=== PATIENT | female | born 1975 | race Caucasian/White ===

== ENCOUNTER 2018-08-23 23:45 | Inpatient (IN) | payer SELFPAY ==
[~2018-08-23] VITALS: Ht 175.3 cm; Wt 64.0 kg
[2018-08-24] VITALS (7 sets, daily range): BP systolic 85–104; BP diastolic 54–67
[2018-08-24] MEDS ORDERED: IV NORMAL SALINE 1,000ML 1,000 ML IV ONE (00:15)
[2018-08-24 00:31] LABS: BASO % 0 % (0-3); EOS # 0.1 x10^3/uL (0.0-0.7); EOS % 1 % (0-3); HEMATOCRIT 42.4 % (36.0-47.0); HEMOGLOBIN 14.2 g/dL (12.0-15.5); LYMPH # 1.4 x10^3/uL (1.0-4.8); LYMPH % 15 % (24-48); MEAN CORPUSCULAR HEMOGLOBIN 29 pg (25-35); MEAN CORPUSCULAR HGB CONC 33 g/dL (31-37); MEAN CORPUSCULAR VOLUME 87 fL (79-100); MONO # 0.6 x10^3/uL (0.0-1.1); MONO % 6 % (0-9); NEUT # 7.1 x10^3uL (1.8-7.7); NEUT % 77 % (31-73); PLATELET COUNT 213 x10^3/uL (140-400); RED BLOOD COUNT 4.85 x10^6/uL (3.50-5.40); RED CELL DISTRIBUTION WIDTH 13.8 % (11.5-14.5); WHITE BLOOD COUNT 9.2 x10^3/uL (4.0-11.0)
[2018-08-24 00:36] LABS: AMPHETAMINE/METHAMPHETAMINE NEG (NEG); BARBITURATES NEG (NEG); BENZODIAZEPINES NEG (NEG); CANNABINOIDS NEG (NEG); COCAINE NEG (NEG); METHADONE NEG (NEG); OPIATES NEG (NEG); PHENCYCLIDINE NEG (NEG)
[2018-08-24 00:40] LABS: ACETAMIN < 2.0 mcg/mL (10-30); ETHANOL < 10 mg/dL (0-10)
[2018-08-24 00:41] LABS: ALBUMIN 3.9 g/dL (3.4-5.0); ALBUMIN/GLOBULIN RATIO 1.1 (1.0-1.7); CALCIUM 8.9 mg/dL (8.5-10.1); CREATININE 0.7 mg/dL (0.6-1.0); GFR 92.2; POTASSIUM 3.5 mmol/L (3.5-5.1); TOTAL BILIRUBIN 0.3 mg/dL (0.2-1.0); TOTAL PROTEIN 7.3 g/dL (6.4-8.2)
[2018-08-24] MEDS ORDERED: ONDANSETRON PF 4 MG/2 ML VIAL. IV PRN ×2 (01:45→03:00)
[2018-08-24] MEDS ORDERED: IV NORMAL SALINE 1,000ML 1,000 ML IV SCH ×2 (01:45→02:59)
[2018-08-24] MEDS ORDERED: OMEP40CA5 PO (03:57)
[2018-08-24] MEDS ORDERED: CLON1TAB11 PO (03:57)
[2018-08-24] MEDS ORDERED: DILT120T PO (03:57)
--- NOTE | 2018-08-24 06:36 | ED.ADGEN ---
Past History Past Medical History: Anxiety, Arrhythmia, Cancer, Diverticulitis Past Surgical History: Cholecystectomy, Colectomy Alcohol Use: None Drug Use: None Adult General Chief Complaint Chief Complaint Drug Overdose, suicide attempt HPI HPI Patient is a 43-year-old female with history of palpitations, anxiety and depression who presents with intentional drug overdose after ingestion unknown quantity of Cardizem and Klonopin prior to ED arrival. GCS 15 on EMS arrival. Vital signs able during transport. On ED arrival, the patient is limited but alerts to tactile and verbal stimulation. Denies any coingestants, drugs, alcohol. Reports prior suicide attempts. Patient contacted family member after ingesting pills.[] Review of Systems Review of Systems ROS limited due to presentation All other systems were reviewed and found to be within normal limits, except as documented in this note. Current Medications Current Medications Current Medications Medications (Trade) Dose Ordered Sig/Derek Start Time Stop Time Status Last Admin Dose Admin Ondansetron HCl (Zofran) 4 mg PRN Q4HRS PRN 08/24/18 03:00 08/24/18 03:26 DC Sodium Chloride 1,000 ml @ 0 mls/hr Q0M 08/24/18 02:59 08/24/18 03:26 DC Allergies Allergies Allergies Coded Allergies Type Severity Reaction Last Updated Verified No Known Drug Allergies 08/24/18 No Physical Exam Physical Exam Constitutional: Well developed, well nourished. [] HENT: Normocephalic, atraumatic, bilateral external ears normal, oropharynx moist, no oral exudates, nose normal. [] Eyes: PERRLA, EOMI, conjunctiva normal, no discharge. [] Neck: Normal range of motion, no tenderness. [] Cardiovascular:Heart rate regular rhythm. [] Lungs & Thorax: Bilateral breath sounds clear to auscultation. [] Abdomen: Bowel sounds normal, soft, no tenderness. [] Skin: Warm, dry, no erythema, no rash. [] Back: No tenderness. [] Extremities: No tenderness. [] Neurologic: obstuneded, alerts to tactile and verbal stimulation normal motor function, normal sensory function, no focal deficits noted. [] Psychologic: Affect normal, judgement normal, mood normal. [] Current Patient Data Vital Signs Vital Signs Date Time Temp Pulse Resp B/P (MAP) Pulse Ox O2 Delivery O2 Flow Rate FiO2 08/24/18 06:29 69 18 87/56 (66) 96 Room Air 08/24/18 03:12 97.7 EKG EKG EKG: reviewed[] Radiology/Procedures Radiology/Procedures [] Course & Med Decision Making Course & Med Decision Making Pertinent Labs and Imaging studies reviewed. (See chart for details) [Patient monitored closely in the ED with improved mental status, patient alert and oriented with clear speech. Blood pressure stable. IV fluids given. Will admit to hospital service for medical clearance and anticipated psychiatric evaluation in a.m.] Final Impression Final Impression 1. Intentional drug overdose 2. Suicidal ideation[] Dragon Disclaimer Dragon Disclaimer This electronic medical record was generated, in whole or in part, using a voice recognition dictation system. TIM ROMERO DO Aug 24, 2018 06:36
--- NOTE | 2018-08-24 11:03 | HP ---
ADMIT DATE: 08/24/2018 HISTORY OF PRESENT ILLNESS: The patient is a 43-year-old female patient, who was brought to the Emergency Room with intentional drug overdose after ingesting an unknown quantity of Cardizem and Klonopin prior to the Emergency Department arrival. However, on questioning, the patient herself said that her sister called her and her speech was slurred and apparently she said that she took her Klonopin and her Cardizem that she takes normally and was sleepy and slurring of speech and her sister called the police and she was given a choice either to go to the senior care or come to the hospital and she decided to come to the Emergency Room. On arrival, the patient is limited, but alert to tactile and verbal stimulation. She denied any co-ingestion to drugs or alcohol. She said that she has had attempted suicide about 20 years ago. According to the Emergency Room physician, the patient contacted her family members after ingesting her pills. She was evaluated in the Emergency Room and her toxicology screen was essentially negative. Her lab work was otherwise unremarkable. PAST MEDICAL HISTORY: Significant for hypertension, gastroparesis, anxiety, idiopathic pancreatitis, polycystic ovary syndrome, and stage 1 cervical cancer. PAST SURGICAL HISTORY: Significant for cholecystectomy, exploratory laparotomy, and cervical biopsy. ALLERGIES: She has no known drug allergies. MEDICATIONS: She is currently on diltiazem 120 mg once a day, clonazepam 1 mg 3 times a day, and Omeprazole 40 mg p.o. daily. FAMILY HISTORY: She has one brother and one sister biological and one adopted sister, they are all healthy. Her both parents are healthy. SOCIAL HISTORY: She is . She has a daughter and a son. She has smoked less than half a pack a day. Does not drink alcohol or recreational drugs. 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 REVIEW OF SYSTEMS: As per history of present illness. PHYSICAL EXAMINATION: GENERAL: When I examined her this morning, she was resting slightly propped up in bed, in no apparent respiratory distress. She was somewhat pale, but no jaundice, No jugular venous distension. No lower limb edema. VITAL SIGNS: Her heart rate was 70, blood pressure was 100/61, temperature 98.2, respiratory rate was 16, and oxygen saturation was 98% on room air. HEAD, EYES, EARS, NOSE, AND THROAT: Showed normocephalic, atraumatic. NECK: Supple. HEART: Showed normal first and second sounds. No gallop, rub, or murmur. CHEST: Clear to auscultation. No crepitation or rhonchi. ABDOMEN: Scaphoid, soft, nontender. NEUROLOGIC: She is awake, alert, responding appropriately. All her cranial nerves intact. She moves extremities without difficulty. She ambulates without assistance or assistive devices. LABORATORY DATA: Her white cell count was 9200, hemoglobin 14.2, hematocrit 42, MCV 87, and platelet count 213,000 with normal manual differential. Her chemistry showed a serum sodium 141, potassium 3.5, chloride 103, bicarbonate 23, anion gap of 15, BUN 9, creatinine was 0.7. Estimated GFR was 92 mL per minute. Her glucose was 96, calcium was 8.9. Total bilirubin, AST, ALT, alkaline phosphatase were normal. Total protein was 7.3, albumin was 3.9. Her toxicology screen was negative and her test was negative. IMPRESSION AND PLAN: In summary, this is a 43-year-old female patient who was admitted according to ER physician with intentional drug overdose after ingesting unknown quantity of Cardizem and Klonopin, although the patient contradicted that and denied any intention to overdose. The plan is to, I have already consulted the psychiatrist to evaluate to see whether the patient needs any inpatient psychiatric treatment. VIOLET QUIÑONES MD DR: MITESH/bee JOB#: [id number] / [id number]
== END 2018-08-24 11:08 | disposition left against medical advice (07) | DRG 918 ==
LOC: ER 23:45 → ICU 08-24 02:58
PROVIDERS: ADMIT Internal Medicine; ATTEND Internal Medicine
DX: T42.4X2A Poisoning by benzodiazepines, intentional self-harm, initial encounter (principal); T46.1X2A Poisoning by calcium-channel blockers, intentional self-harm, initial encounter; F32.9 Major depressive disorder, single episode, unspecified; F41.9 Anxiety disorder, unspecified; I10 Essential (primary) hypertension; Z85.41 Personal history of malignant neoplasm of cervix uteri; Z91.5 Personal history of self-harm; Z90.49 Acquired absence of other specified parts of digestive tract; Y92.89 Other specified places as the place of occurrence of the external cause
CPT/HCPCS: 36415; 80053; 80307; 84702; 85025; 87641; G0480; G6039; 82003; J7030

== ENCOUNTER 2018-11-25 00:13 | Emergency (ER) | payer OTHER ==
[~2018-11-25] VITALS: Ht 175.3 cm; Wt 64.0 kg
[~2018-11-25 00:13] MED LIST: CLON1TAB11 PO; DILT120T PO; OMEP40CA5 PO
[2018-11-25] MEDS ORDERED: MECLIZINE 12.5 MG TABLET. PO PRN (00:30)
--- NOTE | 2018-11-25 00:38 | EKG ---
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
[2018-11-25 00:47] LABS: BASO % 1 % (0-3); EOS # 0.4 x10^3/uL (0.0-0.7); EOS % 7 % (0-3); HEMATOCRIT 35.5 % (36.0-47.0); HEMOGLOBIN 11.8 g/dL (12.0-15.5); LYMPH # 2.3 x10^3/uL (1.0-4.8); LYMPH % 43 % (24-48); MEAN CORPUSCULAR HEMOGLOBIN 29 pg (25-35); MEAN CORPUSCULAR HGB CONC 33 g/dL (31-37); MEAN CORPUSCULAR VOLUME 88 fL (79-100); MONO # 0.4 x10^3/uL (0.0-1.1); MONO % 8 % (0-9); NEUT # 2.3 x10^3uL (1.8-7.7); NEUT % 42 % (31-73); PLATELET COUNT 200 x10^3/uL (140-400); RED BLOOD COUNT 4.04 x10^6/uL (3.50-5.40); RED CELL DISTRIBUTION WIDTH 14.4 % (11.5-14.5); WHITE BLOOD COUNT 5.4 x10^3/uL (4.0-11.0)
[2018-11-25] MEDS ORDERED: IV NORMAL SALINE 1,000ML 1,000 ML IV SCH (01:00)
[2018-11-25] MEDS ORDERED: ONDANSETRON PF 4 MG/2 ML VIAL. IV ONE (01:00)
[2018-11-25 01:03] LABS: ALBUMIN 3.4 g/dL (3.4-5.0); ALBUMIN/GLOBULIN RATIO 1.2 (1.0-1.7); CALCIUM 8.5 mg/dL (8.5-10.1); CREATININE 0.6 mg/dL (0.6-1.0); GFR 110.2; MAGNESIUM 1.9 mg/dL (1.8-2.4); POTASSIUM 3.3 mmol/L (3.5-5.1); TOTAL BILIRUBIN 0.3 mg/dL (0.2-1.0); TOTAL PROTEIN 6.2 g/dL (6.4-8.2)
[2018-11-25 01:39] LABS: U PREG PATIENT NEGATIVE (NEG)
[2018-11-25] MEDS ORDERED: ONDA4TAB7 PO (01:39)
[2018-11-25] MEDS ORDERED: SCOP1PAT11 TP (01:39)
--- NOTE | 2018-11-25 01:39 | PHYS DOC ---
Past History Past Medical History: Anxiety, Arrhythmia, Cancer, Diverticulitis, Other Past Surgical History: Cholecystectomy, Colectomy, Other Alcohol Use: None Drug Use: None Adult General Chief Complaint Chief Complaint: DIZZY/LIGHT HEADED HPI HPI Patient is a 43-year-old female who presents with complaint of dizziness with nausea at the house. She states that the dizziness felt like everything was spinning. She states that she had sat down and tried to drink some juice and started to feel better but then developed some chest discomfort on the left side of her chest and into the left side of her neck and back. She describes that pain as sharp and stabbing in nature. At this point, she called EMS to be further evaluated. Currently she rates the pain in her chest at a 3 out of 10. She states that it is worsened with deep breathing. She also states that the dizziness has returned. She states that dizziness is worsened if she tries to sit up, stand up or turn her head. Review of Systems Review of Systems Constitutional: Denies fever or chills [] Respiratory: Denies cough or shortness of breath [] Cardiovascular: No additional information not addressed in HPI [] GI: Denies abdominal pain. Admits to nausea and vomiting. [] Neurologic: Denies headache, focal weakness or sensory changes. Complains of vertiginous dizziness. [] All other systems were reviewed and found to be within normal limits, except as documented in this note. Current Medications Current Medications Current Medications Medications (Trade) Dose Ordered Sig/Derek Start Time Stop Time Status Last Admin Dose Admin Ketorolac Tromethamine (Toradol 30mg Vial) 30 mg 1X ONCE 11/25/18 02:00 11/25/18 02:01 Meclizine HCl (Antivert) 25 mg PRN Q6HRS PRN 11/25/18 00:30 11/25/18 00:36 25 MG Ondansetron HCl (Zofran) 4 mg 1X ONCE 11/25/18 01:00 11/25/18 01:02 DC 11/25/18 00:36 4 MG Sodium Chloride 1,000 ml @ 1,000 mls/hr Q1H 11/25/18 01:00 11/25/18 01:59 11/25/18 00:37 1,000 MLS/HR Allergies Allergies Allergies Coded Allergies Type Severity Reaction Last Updated Verified No Known Drug Allergies 08/24/18 No Physical Exam Physical Exam Constitutional: Well developed, well nourished, no acute distress, non-toxic appearance. [] HENT: Normocephalic, atraumatic, bilateral external ears normal, oropharynx moist, no oral exudates, nose normal. [] Eyes: PERRLA, EOMI, conjunctiva normal, no discharge. [] Neck: Normal range of motion, no tenderness, supple, no stridor. [] Cardiovascular:Heart rate regular rhythm, no murmur [] Lungs & Thorax: Bilateral breath sounds clear to auscultation [] Abdomen: Bowel sounds normal, soft, no tenderness, no masses, no pulsatile masses. [] Skin: Warm, dry, no erythema, no rash. [] Back: No tenderness, no CVA tenderness. [] Extremities: No tenderness, no cyanosis, no clubbing, ROM intact, no edema. [] Neurologic: Alert and oriented X 3, normal motor function, normal sensory function, no focal deficits noted. [] Psychologic: Affect normal, judgement normal, mood normal. [] Current Patient Data Vital Signs Vital Signs Date Time Temp Pulse Resp B/P (MAP) Pulse Ox O2 Delivery O2 Flow Rate FiO2 11/25/18 00:13 97.7 83 18 99 Room Air Lab Results Laboratory Tests Test 11/25/18 00:15 White Blood Count 5.4 x10^3/uL (4.0-11.0) Red Blood Count 4.04 x10^6/uL (3.50-5.40) Hemoglobin 11.8 g/dL (12.0-15.5) L Hematocrit 35.5 % (36.0-47.0) L Mean Corpuscular Volume 88 fL (79-100) Mean Corpuscular Hemoglobin 29 pg (25-35) Mean Corpuscular Hemoglobin Concent 33 g/dL (31-37) Red Cell Distribution Width 14.4 % (11.5-14.5) Platelet Count 200 x10^3/uL (140-400) Neutrophils (%) (Auto) 42 % (31-73) Lymphocytes (%) (Auto) 43 % (24-48) Monocytes (%) (Auto) 8 % (0-9) Eosinophils (%) (Auto) 7 % (0-3) H Basophils (%) (Auto) 1 % (0-3) Neutrophils # (Auto) 2.3 x10^3uL (1.8-7.7) Lymphocytes # (Auto) 2.3 x10^3/uL (1.0-4.8) Monocytes # (Auto) 0.4 x10^3/uL (0.0-1.1) Eosinophils # (Auto) 0.4 x10^3/uL (0.0-0.7) Basophils # (Auto) 0.0 x10^3/uL (0.0-0.2) Sodium Level 143 mmol/L (136-145) Potassium Level 3.3 mmol/L (3.5-5.1) L Chloride Level 108 mmol/L (98-107) H Carbon Dioxide Level 25 mmol/L (21-32) Anion Gap 10 (6-14) Blood Urea Nitrogen 7 mg/dL (7-20) Creatinine 0.6 mg/dL (0.6-1.0) Estimated GFR (Cockcroft-Gault) 110.2 BUN/Creatinine Ratio 12 (6-20) Glucose Level 81 mg/dL (70-99) Calcium Level 8.5 mg/dL (8.5-10.1) Magnesium Level 1.9 mg/dL (1.8-2.4) Total Bilirubin 0.3 mg/dL (0.2-1.0) Aspartate Amino Transferase (AST) 12 U/L (15-37) L Alanine Aminotransferase (ALT) 11 U/L (14-59) L Alkaline Phosphatase 67 U/L (46-116) Troponin I Quantitative < 0.017 ng/mL (0-0.055) Total Protein 6.2 g/dL (6.4-8.2) L Albumin 3.4 g/dL (3.4-5.0) Albumin/Globulin Ratio 1.2 (1.0-1.7) Lipase 140 U/L (73-393) EKG EKG EKG demonstrates normal sinus rhythm.[] Radiology/Procedures Radiology/Procedures [] Impressions: Chest x-ray demonstrates no acute process. Course & Med Decision Making Course & Med Decision Making Pertinent Labs and Imaging studies reviewed. (See chart for details) Patient's workup was completed to include cardiac workup. Findings reviewed with patient and I discussed admission into this facility for further evaluation and management. Patient was adamant that she be discharged home, stating that she would follow-up with her primary care provider in the morning. Dragon Disclaimer Dragon Disclaimer This electronic medical record was generated, in whole or in part, using a voice recognition dictation system. Departure Departure: Impression: Primary Impression: Vertigo Additional Impression: Atypical chest pain Disposition: HOME, SELF-CARE Condition: STABLE Referrals: ALISON MACHADO DO (PCP) Patient Instructions: Benign Positional Vertigo, Chest Pain (Nonspecific) Scripts Scopolamine (TRANSDERM-SCOP) 1 Each Patch.td72 1 PATCH TP Q3DAYS PRN for DIZZINESS, #4 PATCH Prov: MARIA G KEYS Jr. DO 11/25/18 Ondansetron Hcl (ZOFRAN) 4 Mg Tablet 4 MG PO Q6HRS PRN for NAUSEA, #15 TAB Prov: MARIA G KEYS Jr. DO 11/25/18 Problem Qualifiers MARIA G KEYS Jr. DO Nov 25, 2018 01:39
[2018-11-25 01:41] LABS: BARBITURATES NEG (NEG); BENZODIAZEPINES NEG (NEG); CANNABINOIDS NEG (NEG); COCAINE NEG (NEG); METHADONE NEG (NEG); OPIATES NEG (NEG); PHENCYCLIDINE NEG (NEG)
[2018-11-25 01:42] VITALS: BP 105/62
[2018-11-25 01:46] LABS: AMPHETAMINE/METHAMPHETAMINE NEG (NEG)
[2018-11-25] MEDS ORDERED: KETOROLAC 30 MG/ML VIAL. IV ONE (02:00)
--- NOTE | 2018-11-25 07:55 | RAD ---
PROCEDURE: PORTABLE CHEST 1V CLINICAL INDICATION: Chest pain COMPARISON: None FINDINGS: No pneumothorax identified. Cardiac and mediastinal contours unremarkable. No pulmonary consolidation or acute airspace disease. No acute osseous abnormalities identified. IMPRESSION: No pulmonary consolidation or acute airspace disease. Electronically signed by: Kal Sharif DO (11/25/2018 7:52 AM) [facility]
== END 2018-11-25 02:00 | disposition home or self-care (01) ==
LOC: ER 00:13
DX: R42 Dizziness and giddiness (principal); R07.89 Other chest pain; R11.2 Nausea with vomiting, unspecified; F41.9 Anxiety disorder, unspecified
CPT/HCPCS: 36415; 71045; 80053; 80307; 81025; 83690; 83735; 84484; 85025; 93005; 96361; 96374; 96375; 99284; J1885; J2405; J8597; J7030

== ENCOUNTER 2019-01-08 01:00 | Emergency (ER) | payer SELFPAY ==
[~2019-01-08] VITALS: Ht 175.3 cm; Wt 61.2 kg
[~2019-01-08 01:00] MED LIST changes: +ONDA4TAB7 PO; +SCOP1PAT11 TP
[2019-01-08 01:15] VITALS: BP 126/85
--- NOTE | 2019-01-08 01:23 | EKG ---
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
[2019-01-08] MEDS ORDERED: LIDO:MAALOX 1:1 20 ML SINGLE DOSE. PO ONE (01:30)
[2019-01-08] MEDS ORDERED: IV NORMAL SALINE 1,000ML 1,000 ML IV ONE (01:30)
--- NOTE | 2019-01-08 01:55 | RAD ---
PROCEDURE: CHEST PA LATERAL CLINICAL INDICATION: chest pain
COMPARISON: None FINDINGS: No pneumothorax identified. Cardiac and mediastinal contours unremarkable. No pulmonary consolidation or acute airspace disease. No acute osseous abnormalities identified. IMPRESSION: No pulmonary consolidation or acute airspace disease. Electronically signed by: Kal Sharif DO (01/08/2019 1:51 AM) [facility]
[2019-01-08 02:12] LABS: BASO # 0.1 x10^3/uL (0.0-0.2); BASO % 1 % (0-3); EOS # 0.3 x10^3/uL (0.0-0.7); EOS % 4 % (0-3); HEMATOCRIT 38.2 % (36.0-47.0); HEMOGLOBIN 12.9 g/dL (12.0-15.5); LYMPH # 2.5 x10^3/uL (1.0-4.8); LYMPH % 34 % (24-48); MEAN CORPUSCULAR HEMOGLOBIN 29 pg (25-35); MEAN CORPUSCULAR HGB CONC 34 g/dL (31-37); MEAN CORPUSCULAR VOLUME 87 fL (79-100); MONO # 0.5 x10^3/uL (0.0-1.1); MONO % 7 % (0-9); NEUT % 55 % (31-73); PLATELET COUNT 234 x10^3/uL (140-400); RED BLOOD COUNT 4.37 x10^6/uL (3.50-5.40); WHITE BLOOD COUNT 7.3 x10^3/uL (4.0-11.0)
[2019-01-08 02:14] LABS: ALBUMIN 3.5 g/dL (3.4-5.0); ALBUMIN/GLOBULIN RATIO 0.9 (1.0-1.7); CALCIUM 8.8 mg/dL (8.5-10.1); CREATININE 0.7 mg/dL (0.6-1.0); GFR 92.2; MAGNESIUM 1.8 mg/dL (1.8-2.4); POTASSIUM 3.1 mmol/L (3.5-5.1); TOTAL BILIRUBIN 0.2 mg/dL (0.2-1.0); TOTAL PROTEIN 7.4 g/dL (6.4-8.2)
[2019-01-08] MEDS ORDERED: ONDANSETRON PF 4 MG/2 ML VIAL. IV ONE (02:15)
--- NOTE | 2019-01-08 02:45 | PHYS DOC ---
Past History Past Medical History: Anxiety, Arrhythmia, Cancer, Diverticulitis, Ovarian Cyst, Pancreatitis, Other Past Medical History gastroparesis Past Surgical History: Cholecystectomy, Colectomy, Other Smoking: Less than 1pk/day Alcohol Use: None Drug Use: None Adult General Chief Complaint Chief Complaint: CHEST PAIN HPI HPI Patient is a 43 year old female who presents with chest pressure and feeling disoriented since 2300 this evening. She was prescribed Augmentin for possible "pneumonia" this afternoon after visiting her PCP and took it for the first time this evening. Since this is the first time she has been prescribed this medication, she is concerned that she may be experiencing an allergic reaction. Her symptoms progressively worsened to a maximum at around 0000 at which point s he felt dizzy, disoriented, palpitations, and chest pressure that radiated to her back as well as b/l arms and jaw. She states she felt anxious during this time along with some nausea and clammy palms. Chest pressure is worse with walking and laying flat as well as taking a deep breath. She states she had a negative stress test performed three years ago. LMP was 1 month ago. Denies throat swelling, hives, or pruritus at this time. Review of Systems Review of Systems Constitutional: Reports subjective fever over past few day as well as anxiety [] Eyes: Denies blurred vision or diplopia [] HENT: Denies nasal congestion, rhinorrhea or sore throat [] Respiratory: Reports cough or shortness of breath [] Cardiovascular: Reports chest pressure that radiates to back, arms and neck b/l, palpitations [] GI: Denies abdominal pain, vomiting or diarrhea ; reports nausea : Denies dysuria or hematuria [] Musculoskeletal: Reports chest pressure radiating to back, denies additional joint pain [] Integument: Denies rash, hives or pruritus [] Neurologic: Reports dizziness and mild disorientation. Denies headache, focal weakness or sensory changes [] Psychiatric: Increased stress and anxiety Complete review of systems found to be within normal limits, except as doc umented in this note. Current Medications Current Medications Current Medications Medications (Trade) Dose Ordered Sig/Derek Start Time Stop Time Status Last Admin Dose Admin Multi-Ingredient Mouthwash/Gargle (Gi Cocktail) 20 ml 1X ONCE 01/08/19 01:30 01/08/19 01:38 DC Sodium Chloride 1,000 ml @ 1,000 mls/hr 1X ONCE 01/08/19 01:30 01/08/19 02:29 01/08/19 01:49 1,000 MLS/HR Allergies Allergies Allergies Coded Allergies Type Severity Reaction Last Updated Verified nitroglycerin Allergy Unknown 11/25/18 Yes Physical Exam Physical Exam Constitutional: Well developed, well nourished, anxious appearing female. [] HENT: Normocephalic, atraumatic, tympanic membranes visualized b/l without erythema or effusion. [] Eyes: EOMI, conjunctiva normal, no discharge. [] Neck: Supple and nontender without lymphadenopathy. [] Cardiovascular: Heart rate regular rhythm, no murmur [] Lungs & Thorax: Bilateral breath sounds clear to auscultation without adventitious breath soudns [] Abdomen: Soft and nontender [] Skin: Warm, dry, no erythema, no rash. [] Extremities: Radial pulses +2/4 b/l, no cyanosis [] Neurologic: Alert and oriented, no focal deficits noted [] Psychologic: Anxious appearing, mildly constricted affect with good judgement [] Current Patient Data Vital Signs Vital Signs Date Time Temp Pulse Resp B/P (MAP) Pulse Ox O2 Delivery O2 Flow Rate FiO2 01/08/19 01:15 97.8 96 19 100 Room Air Lab Results Laboratory Tests Test 01/08/19 01:35 Prothrombin Time 10.6 SEC (9.4-11.4) Prothrombin Time INR 1.1 (0.9-1.1) PTT 26 SEC (23-33) EKG EKG @0116 Normal sinus rhythm with rate of 84. Normal axis. No Q waves. No ST elevation or depression. [] Radiology/Procedures Radiology/Procedures PROCEDURE: CHEST PA & LATERAL PROCEDURE: CHEST PA LATERAL CLINICAL INDICATION: chest pain
COMPARISON: None FINDINGS: No pneumothorax identified. Cardiac and mediastinal contours unremarkable. No pulmonary consolidation or acute airspace disease. No acute osseous abnormalities identified. IMPRESSION: No pulmonary consolidation or acute airspace disease. [] Course & Med Decision Making Course & Med Decision Making Pertinent Labs and Imaging studies reviewed. (See chart for details) Pt is a 43 year old female who presents to the ED with the sensation of disorientation, palpitations and chest pressure that radiates back, neck and b/l arms. PERC negative. HEART score of 1 suggesting low-risk. CBC and CMP unremarkable aside from mild hypokalemia. Hypokalemia addressed. Troponin negative. Chest x-ray showed no evidence of acute cardiopulmonary process. Nausea addressed with interval improvement. Patient feels well enough to discharge home. Will send home with steroid burst for respiratory symptoms as well as potassium replacement. Patient stable for discharge with outpatient follow-up with PCP. Discussed findings and plan with patient, who acknowledges understanding and agreement. [] Dragon Disclaimer Dragon Disclaimer This electronic medical record was generated, in whole or in part, using a voice recognition dictation system. Departure Departure: Impression: Primary Impression: Palpitations Additional Impressions: Anxiety Hypokalemia Nausea Disposition: HOME, SELF-CARE Condition: STABLE Referrals: ALISON MACHADO DO (PCP) RIVERA YAP MD Patient Instructions: Anxiety and Panic Attacks, [id number], Hypokalemia, Nausea, Adult, Ktrq-xd-Vine, Palpitations, [id number], Potassium Content of Foods Scripts Ondansetron (ONDANSETRON ODT) 4 Mg Tab.rapdis 1 TAB PO PRN Q6-8HRS for NAUSEA, #16 TAB Prov: FERMIN WERNER DO 01/08/19 Prednisone (PREDNISONE) 20 Mg Tablet 2 TAB PO DAILY for Bronchitis, #8 TAB Start this medication tomorrow, Saturday01/09/19 Prov: FERMIN WERNER DO 01/08/19 HEART Score for Chest Pain PTs The HEART Score for CP Pts HEART Score for Chest Pain: HEART Score for Chest Pain Response (Comments) Value History Slighlty/Non-Suspicious 0 ECG Normal 0 Age < 45 0 Risk Factors 1 or 2 Risk Factors 1 Troponin < Normal Limit 0 Total 1 Risk Factors: Risk Factors: DM, Current or recent (<one month) smoker, HTN, HLP, family history of CAD, obesity. Risk Scores: Score 0 - 3: 2.5% MACE over next 6 weeks - Discharge Home Score 4 - 6: 20.3% MACE over next 6 weeks - Admit for Clinical Observation Score 7 - 10: 72.7% MACE over next 6 weeks - Early Invasive Strategies Problem Qualifiers FERMIN WERNER DO January 08, 2019 02:45
[2019-01-08] MEDS ORDERED: ONDA4TAB12 PO (02:50)
[2019-01-08] MEDS ORDERED: PRED20TA PO (02:50)
[2019-01-08] MEDS ORDERED: POTASSIUM CHLORIDE 20 MEQ TABLET.ER. PO ONE (03:00)
[2019-01-08] MEDS ORDERED: predniSONE 20 MG TABLET PO ONE (03:00)
== END 2019-01-08 03:26 | disposition home or self-care (01) ==
LOC: ER 01:00
DX: F41.9 Anxiety disorder, unspecified (principal); E87.6 Hypokalemia; R42 Dizziness and giddiness; F17.200 Nicotine dependence, unspecified, uncomplicated; Z88.8 Allergy status to other drugs, medicaments and biological substances
CPT/HCPCS: 36415; 71046; 80053; 82553; 83690; 83735; 83880; 84484; 85025; 85610; 85730; 93005; 96361; 96374; 99285; J2405; J7512; J7030

== ENCOUNTER 2019-03-25 17:14 | Emergency (ER) | payer SELFPAY ==
[~2019-03-25 17:14] MED LIST changes: +ONDA4TAB12 PO; +PRED20TA PO
[2019-03-25] MEDS ORDERED: IV NORMAL SALINE 1,000ML 1,000 ML IV ONE (17:30)
[2019-03-25] MEDS ORDERED: IOHEXOL 300 MG/ML 75 ML VIAL. IV ONE (18:00)
[2019-03-25 18:35] LABS: BASO % 1 % (0-3); EOS # 0.3 x10^3/uL (0.0-0.7); EOS % 5 % (0-3); HEMATOCRIT 36.6 % (36.0-47.0); LYMPH # 1.5 x10^3/uL (1.0-4.8); LYMPH % 27 % (24-48); MEAN CORPUSCULAR HEMOGLOBIN 29 pg (25-35); MEAN CORPUSCULAR HGB CONC 33 g/dL (31-37); MEAN CORPUSCULAR VOLUME 88 fL (79-100); MONO # 0.5 x10^3/uL (0.0-1.1); MONO % 9 % (0-9); NEUT # 3.2 x10^3uL (1.8-7.7); NEUT % 59 % (31-73); PLATELET COUNT 229 x10^3/uL (140-400); RED BLOOD COUNT 4.14 x10^6/uL (3.50-5.40); RED CELL DISTRIBUTION WIDTH 14.1 % (11.5-14.5); WHITE BLOOD COUNT 5.5 x10^3/uL (4.0-11.0)
[2019-03-25 18:49] LABS: ALBUMIN 3.4 g/dL (3.4-5.0); ALBUMIN/GLOBULIN RATIO 1.1 (1.0-1.7); CALCIUM 9.3 mg/dL (8.5-10.1); CREATININE 0.7 mg/dL (0.6-1.0); GFR 92.2; POTASSIUM 3.2 mmol/L (3.5-5.1); TOTAL BILIRUBIN 0.3 mg/dL (0.2-1.0); TOTAL PROTEIN 6.6 g/dL (6.4-8.2)
[2019-03-25] MEDS ORDERED: FAMOTIDINE 20 MG/2 ML VIAL IVP ONE (19:00)
[2019-03-25] MEDS ORDERED: ONDANSETRON PF 4 MG/2 ML VIAL. IV ONE (19:00)
--- NOTE | 2019-03-25 19:14 | PHYS DOC ---
Past History Past Medical History: Anxiety, Arrhythmia, Cancer, Diverticulitis, Ovarian Cyst, Pancreatitis (Idiopathic), Other Additional Past Medical Histor: Chron's Disease, Gastroparesis Past Surgical History: Cholecystectomy, Colectomy, Other Smoking: Less than 1pk/day Alcohol Use: None Drug Use: None Adult General Chief Complaint Chief Complaint: BLOODY STOOL HPI HPI Patient is a 43-year-old female who presents with hematochezia. Around 1700 she had a bowel movement, and her stool was mixed with blood.She then passed multiple blood clots from her rectum. After the bowel movement, the bleeding slowly trickled off. She is having burning sensation in her lower left abdomen. She rates the pain a 7/10. The only other time she has had this much blood in her stool was when she had a GI bleed. She has not eaten much over the past few days, because she had a dental procedure. She has been nauseated all day today and is feeling very nauseous currently. She is dizzy and has a headache. She denies vomiting. Denies fever/chills. Review of Systems Review of Systems Constitutional: Denies fever or chills Eyes: Denies redness or eye pain HENT: Denies nasal congestion or sore throat Respiratory: Denies cough or shortness of breath Cardiovascular: Denies chest pain or palpitations GI: Reports abdominal pain and nausea, denies vomiting : Denies dysuria or hematuria Musculoskeletal: Denies back pain or joint pain Integument: Denies rash or skin lesions Neurologic: Denies headache, focal weakness or sensory changes Complete systems were reviewed and found to be within normal limits, except as documented in this note. Current Medications Current Medications Current Medications Medications (Trade) Dose Ordered Sig/Derek Start Time Stop Time Status Last Admin Dose Admin Dexamethasone Sodium Phosphate (Decadron) 10 mg 1X ONCE 03/25/19 19:15 03/25/19 19:16 UNV Famotidine (Pepcid Vial) 20 mg 1X ONCE 03/25/19 19:00 03/25/19 19:01 DC 03/25/19 19:06 20 MG Iohexol (Omnipaque 300 Mg/ml) 75 ml 1X ONCE 03/25/19 18:00 03/25/19 18:01 DC 03/25/19 18:21 75 ML Ondansetron HCl (Zofran) 4 mg 1X ONCE 03/25/19 19:00 03/25/19 19:01 DC 03/25/19 19:06 4 MG Sodium Chloride 1,000 ml @ 1,000 mls/hr 1X ONCE 03/25/19 17:30 03/25/19 18:29 DC 03/25/19 18:14 1,000 MLS/HR Allergies Allergies Allergies Coded Allergies Type Severity Reaction Last Updated Verified citalopram Allergy Unknown 03/25/19 Yes nitroglycerin Allergy Unknown 03/25/19 Yes Physical Exam Physical Exam Constitutional: Well developed, well nourished, no acute distress, non-toxic appearance HENT: Normocephalic, atraumatic, oropharynx moist Eyes: PERRL, conjunctiva normal, no discharge Neck: Normal range of motion, no tenderness, supple Cardiovascular: Heart rate normal, regular rhythm Lungs & Thorax: Bilateral breath sounds clear to auscultation, no wheezing Abdomen: Soft, mild tenderness to palpation in left lower quadrant. No peritoneal signs, no rebound tenderness. Belly button ring in place. Skin: Warm, dry, no erythema, no rash Back: No tenderness, no CVA tenderness Extremities: No tenderness, ROM intact, no edema Neurologic: Alert and oriented X 3, normal motor function, normal sensory function, no focal deficits noted Psychologic: Affect normal, judgement normal, mood normal Current Patient Data Vital Signs Vital Signs Date Time Temp Pulse Resp B/P (MAP) Pulse Ox O2 Delivery O2 Flow Rate FiO2 03/25/19 17:23 97.9 90 18 96 Room Air Lab Results Laboratory Tests Test 03/25/19 18:10 White Blood Count 5.5 x10^3/uL (4.0-11.0) Red Blood Count 4.14 x10^6/uL (3.50-5.40) Hemoglobin 12.0 g/dL (12.0-15.5) Hematocrit 36.6 % (36.0-47.0) Mean Corpuscular Volume 88 fL (79-100) Mean Corpuscular Hemoglobin 29 pg (25-35) Mean Corpuscular Hemoglobin Concent 33 g/dL (31-37) Red Cell Distribution Width 14.1 % (11.5-14.5) Platelet Count 229 x10^3/uL (140-400) Neutrophils (%) (Auto) 59 % (31-73) Lymphocytes (%) (Auto) 27 % (24-48) Monocytes (%) (Auto) 9 % (0-9) Eosinophils (%) (Auto) 5 % (0-3) H Basophils (%) (Auto) 1 % (0-3) Neutrophils # (Auto) 3.2 x10^3uL (1.8-7.7) Lymphocytes # (Auto) 1.5 x10^3/uL (1.0-4.8) Monocytes # (Auto) 0.5 x10^3/uL (0.0-1.1) Eosinophils # (Auto) 0.3 x10^3/uL (0.0-0.7) Basophils # (Auto) 0.0 x10^3/uL (0.0-0.2) Sodium Level 142 mmol/L (136-145) Potassium Level 3.2 mmol/L (3.5-5.1) L Chloride Level 107 mmol/L (98-107) Carbon Dioxide Level 22 mmol/L (21-32) Anion Gap 13 (6-14) Blood Urea Nitrogen 10 mg/dL (7-20) Creatinine 0.7 mg/dL (0.6-1.0) Estimated GFR (Cockcroft-Gault) 92.2 BUN/Creatinine Ratio 14 (6-20) Glucose Level 107 mg/dL (70-99) H Calcium Level 9.3 mg/dL (8.5-10.1) Total Bilirubin 0.3 mg/dL (0.2-1.0) Aspartate Amino Transferase (AST) 12 U/L (15-37) L Alanine Aminotransferase (ALT) 14 U/L (14-59) Alkaline Phosphatase 56 U/L (46-116) Total Protein 6.6 g/dL (6.4-8.2) Albumin 3.4 g/dL (3.4-5.0) Albumin/Globulin Ratio 1.1 (1.0-1.7) EKG EKG [] Radiology/Procedures Radiology/Procedures PROCEDURE: CT ABD PELV W/ IV CONTRST ONLY CT SCAN OF THE ABDOMEN AND PELVIS WITH IV CONTRAST. History: Left lower quadrant pain Comparison:None. Procedure: Contiguous axial images of the abdomen and pelvis were performed after the administration of 75 cc of Omni 350 IV contrast and without oral contrast. CT Abdomen with contrast: Findings: There is mild wall thickening of the colon without surrounding inflammation. Liver: There are few small cysts and there is hypoattenuation anteriorly along the fissure, likely focal fatty infiltration Spleen: Unremarkable Pancreas: Unremarkable Adrenal Glands: Unremarkable Kidneys: Unremarkable There is no mass or lymphadenopathy. There is no free air. There is no free fluid. CT Pelvis with Contrast: Findings: There is moderate sigmoid diverticulosis without surrounding inflammation. There is a 4.5, 3.2 centers cyst in the right ovary. The appendix is not well visualized. The urinary bladder appears normal. There is no free fluid. There is no lymphadenopathy. Impression: 1. Mild wall thickening of the colon is consistent with pancolitis and could be infectious such as pseudomembranous colitis or could be inflammatory such as ulcerative colitis. There is no CT evidence of diverticulitis or ischemic colitis. 2. Ovarian cyst on the right. Recommend correlation with CA-125 and a 2-3 month follow-up ultrasound. PQRS Compliance Statement: One or more of the following individualized dose reduction techniques were utilized for this examination: 1. Automated exposure control 2. Adjustment of the mA and/or kV according to patient size 3. Use of iterative reconstruction technique Electronically signed by: Toby Mcmahon III, MD (03/25/2019 7:33 PM) [facility][] Course & Med Decision Making Course & Med Decision Making Pertinent Labs and Imaging studies reviewed. (See chart for details) Patient is a 43-year-old female with a past medical history Crohn's disease who presents with hematochezia. She has a bowel movement at 1700 that was mixed with blood and she passed several blood clots from her rectum. She reports burning in her left lower abdomen and nausea. On physical exam her abdomen is slightly tender to palpation in the left lower quadrant with no peritoneal signs. CT abdomen is indicative of pancolitis without diverticulitis. Laboratory evaluati on showed hypokalemia. Symptomatic treatment provided. IVF hydration given. Patient stable for discharge with outpatient follow-up with PCP/GI . Discussed findings and plan with patient and family, who acknowledge understanding and agreement. Dragon Disclaimer Dragon Disclaimer This electronic medical record was generated, in whole or in part, using a voice recognition dictation system. Departure Departure: Impression: Primary Impression: Pancolitis Additional Impression: Hypokalemia Disposition: HOME, SELF-CARE Condition: STABLE Referrals: ALISON MACHADO DO (PCP) Patient Instructions: Crohn's Disease, Hypokalemia-Brief, Potassium Content of Foods Scripts Prednisone (PREDNISONE) 20 Mg Tablet 2 TAB PO DAILY for Crohn's Exacerbation for 5 Days, #10 TAB Prov: FERMIN WERNER DO 03/25/19 Ondansetron (ONDANSETRON ODT) 4 Mg Tab.rapdis 1 TAB PO PRN Q6-8HRS PRN for NAUSEA, #16 TAB Prov: FERMIN WERNER DO 03/25/19 Problem Qualifiers FERMIN WERNER DO Mar 25, 2019 19:14
[2019-03-25] MEDS ORDERED: DEXAMETHASONE SOD PHOS 10 MG/ML VIAL IV ONE (19:15)
[2019-03-25 19:23] LABS: PREG TEST PT QUAL NEGATIVE (NEG)
--- NOTE | 2019-03-25 19:36 | RAD ---
CT SCAN OF THE ABDOMEN AND PELVIS WITH IV CONTRAST. History: Left lower quadrant pain Comparison:None. Procedure: Contiguous axial images of the abdomen and pelvis were performed after the administration of 75 cc of Omni 350 IV contrast and without oral contrast. CT Abdomen with contrast: Findings: There is mild wall thickening of the colon without surrounding inflammation. Liver: There are few small cysts and there is hypoattenuation anteriorly along the fissure, likely focal fatty infiltration Spleen: Unremarkable Pancreas: Unremarkable Adrenal Glands: Unremarkable Kidneys: Unremarkable There is no mass or lymphadenopathy. There is no free air. There is no free fluid. CT Pelvis with Contrast: Findings: There is moderate sigmoid diverticulosis without surrounding inflammation. There is a 4.5, 3.2 centers cyst in the right ovary. The appendix is not well visualized. The urinary bladder appears normal. There is no free fluid. There is no lymphadenopathy. Impression: 1. Mild wall thickening of the colon is consistent with pancolitis and could be infectious such as pseudomembranous colitis or could be inflammatory such as ulcerative colitis. There is no CT evidence of diverticulitis or ischemic colitis. 2. Ovarian cyst on the right. Recommend correlation with CA-125 and a 2-3 month follow-up ultrasound. PQRS Compliance Statement: One or more of the following individualized dose reduction techniques were utilized for this examination: 1. Automated exposure control 2. Adjustment of the mA and/or kV according to patient size 3. Use of iterative reconstruction technique Electronically signed by: Toby Mcmahon III, MD (03/25/2019 7:33 PM) [facility]
[2019-03-25] MEDS ORDERED: ONDA4TAB12 PO (19:56)
[2019-03-25] MEDS ORDERED: PRED20TA PO (19:56)
[2019-03-25] MEDS ORDERED: POTASSIUM CHLORIDE 20 MEQ TABLET.ER. PO ONE (20:00)
[2019-03-25 20:15] VITALS: BP 112/78
[2019-03-25] MEDS ORDERED: DEXAMETHASONE 4 MG TABLET PO ONE (20:30)
== END 2019-03-25 20:28 | disposition home or self-care (01) ==
LOC: ER 17:14
DX: K51.00 Ulcerative (chronic) pancolitis without complications (principal); E87.6 Hypokalemia; R42 Dizziness and giddiness; R51 Headache; F17.200 Nicotine dependence, unspecified, uncomplicated; H05.811 Cyst of right orbit; Z90.49 Acquired absence of other specified parts of digestive tract; Z88.8 Allergy status to other drugs, medicaments and biological substances
CPT/HCPCS: 36415; 74177; 80053; 83690; 84703; 85025; 96361; 96374; 96375; 99285; J2405; J3490; J8540; Q9967; J7030

== ENCOUNTER 2019-05-15 13:05 | Emergency (ER) | payer OTHER ==
[~2019-05-15] VITALS: Ht 177.8 cm; Wt 58.5 kg
--- NOTE | 2019-05-15 14:13 | RAD ---
Single view AP chest HISTORY: Shortness of breath. COMPARISON: 01/08/2019 FINDINGS: Cardiomediastinal silhouette within normal limits. No evidence of pneumothorax, infiltrate or pleural effusion. Bones appear intact. IMPRESSION: No evidence of consolidating infiltrate. Electronically signed by: Shaquille Fox MD (05/15/2019 2:11 PM) [facility]
[2019-05-15 14:23] LABS: BASO # 0.1 x10^3/uL (0.0-0.2); BASO % 1 % (0-3); EOS # 0.3 x10^3/uL (0.0-0.7); EOS % 4 % (0-3); HEMATOCRIT 37.2 % (36.0-47.0); HEMOGLOBIN 12.3 g/dL (12.0-15.5); LYMPH # 1.9 x10^3/uL (1.0-4.8); LYMPH % 26 % (24-48); MEAN CORPUSCULAR HEMOGLOBIN 29 pg (25-35); MEAN CORPUSCULAR HGB CONC 33 g/dL (31-37); MEAN CORPUSCULAR VOLUME 88 fL (79-100); MONO # 0.5 x10^3/uL (0.0-1.1); MONO % 7 % (0-9); NEUT # 4.6 x10^3uL (1.8-7.7); NEUT % 63 % (31-73); PLATELET COUNT 235 x10^3/uL (140-400); RED BLOOD COUNT 4.23 x10^6/uL (3.50-5.40); WHITE BLOOD COUNT 7.3 x10^3/uL (4.0-11.0)
[2019-05-15 14:33] LABS: ALBUMIN 3.5 g/dL (3.4-5.0); CALCIUM 8.9 mg/dL (8.5-10.1); CREATININE 0.6 mg/dL (0.6-1.0); GFR 109.6; TOTAL PROTEIN 6.9 g/dL (6.4-8.2)
[2019-05-15 14:34] LABS: POTASSIUM 3.8 mmol/L (3.5-5.1); TOTAL BILIRUBIN 0.2 mg/dL (0.2-1.0)
--- NOTE | 2019-05-15 15:25 | PHYS DOC ---
Past History Past Medical History: Anxiety, Arrhythmia, Cancer, Diverticulitis, Ovarian Cyst, Pancreatitis, Other Additional Past Medical Histor: Chron's Disease, Gastroparesis Past Surgical History: Cholecystectomy, Colectomy, Other Smoking: Less than 1pk/day Alcohol Use: None Drug Use: None Adult General Chief Complaint Chief Complaint: CHEST PAIN-CARDIAC NATURE HPI HPI Patient is a 44-year-old female presenting with chief complaint of near- syncope. She was at work she felt her heart racing she has a history of SVT but it felt different than that she was more lightheaded and passed on its own after a few minutes but she was having chest pressure she came to the emergency room for evaluation. She says she is not used to her SVT symptoms resolving on their own so she was concerned. She takes Cardizem 120 a day extended release. No recent illnesses she does have a significant GI history Crohn's disease etc. but no new symptoms in that regard today Review of Systems Review of Systems Constitutional: Denies fever or chills [] Eyes: Denies change in visual acuity, redness, or eye pain [] HENT: Denies nasal congestion or sore throat [] Respiratory: Denies cough or shortness of breath [] Cardiovascular: Musculoskeletal: Denies back pain or joint pain [] Integument: Denies rash or skin lesions [] Neurologic: Denies headache, focal weakness or sensory changes [] All other systems were reviewed and found to be within normal limits, except as documented in this note. Allergies Allergies Allergies Coded Allergies Type Severity Reaction Last Updated Verified citalopram Allergy Unknown 03/25/19 Yes nitroglycerin Allergy Unknown 03/25/19 Yes Physical Exam Physical Exam Constitutional: Well developed, well nourished, no acute distress, non-toxic appearance. [] HENT: Normocephalic, atraumatic, bilateral external ears normal, oropharynx ana [address], no oral exudates, nose normal. [] Eyes: PERRLA, EOMI, conjunctiva normal, no discharge. [] Neck: Normal range of motion, no tenderness, supple, no stridor. [] rr no mrg lctab no crw Skin: Warm, dry, no erythema, no rash. [] Back: No tenderness, no CVA tenderness. [] Extremities: No tenderness, no cyanosis, no clubbing, ROM intact, no edema. [] Neurologic: Alert and oriented X 3, normal motor function, normal sensory function, no focal deficits noted. [] Psychologic: Affect normal, judgement normal, mood normal. [] Current Patient Data Vital Signs Vital Signs Date Time Temp Pulse Resp B/P (MAP) Pulse Ox O2 Delivery O2 Flow Rate FiO2 05/15/19 13:22 98.5 74 18 100 Room Air Lab Results Laboratory Tests Test 05/15/19 14:04 05/15/19 14:17 White Blood Count 7.3 x10^3/uL (4.0-11.0) Red Blood Count 4.23 x10^6/uL (3.50-5.40) Hemoglobin 12.3 g/dL (12.0-15.5) Hematocrit 37.2 % (36.0-47.0) Mean Corpuscular Volume 88 fL (79-100) Mean Corpuscular Hemoglobin 29 pg (25-35) Mean Corpuscular Hemoglobin Concent 33 g/dL (31-37) Red Cell Distribution Width 14.0 % (11.5-14.5) Platelet Count 235 x10^3/uL (140-400) Neutrophils (%) (Auto) 63 % (31-73) Lymphocytes (%) (Auto) 26 % (24-48) Monocytes (%) (Auto) 7 % (0-9) Eosinophils (%) (Auto) 4 % (0-3) H Basophils (%) (Auto) 1 % (0-3) Neutrophils # (Auto) 4.6 x10^3uL (1.8-7.7) Lymphocytes # (Auto) 1.9 x10^3/uL (1.0-4.8) Monocytes # (Auto) 0.5 x10^3/uL (0.0-1.1) Eosinophils # (Auto) 0.3 x10^3/uL (0.0-0.7) Basophils # (Auto) 0.1 x10^3/uL (0.0-0.2) Sodium Level 140 mmol/L (136-145) Potassium Level 3.8 mmol/L (3.5-5.1) Chloride Level 104 mmol/L (98-107) Carbon Dioxide Level 28 mmol/L (21-32) Anion Gap 8 (6-14) Blood Urea Nitrogen 4 mg/dL (7-20) L Creatinine 0.6 mg/dL (0.6-1.0) Estimated GFR (Cockcroft-Gault) 109.6 BUN/Creatinine Ratio 7 (6-20) Glucose Level 88 mg/dL (70-99) Calcium Level 8.9 mg/dL (8.5-10.1) Total Bilirubin 0.2 mg/dL (0.2-1.0) Aspartate Amino Transferase (AST) 16 U/L (15-37) Alanine Aminotransferase (ALT) 17 U/L (14-59) Alkaline Phosphatase 73 U/L (46-116) Troponin I Quantitative < 0.017 ng/mL (0-0.055) Total Protein 6.9 g/dL (6.4-8.2) Albumin 3.5 g/dL (3.4-5.0) Albumin/Globulin Ratio 1.0 (1.0-1.7) POC Urine HCG, Qualitative hcg negative (Negative) EKG EKG Normal sinus rhythm rate of 70 normal intervals[] Radiology/Procedures Radiology/Procedures [] Impressions: Cardiomediastinal silhouette within normal limits. No evidence of pneumothorax, infiltrate or pleural effusion. Bones appear intact. IMPRESSION: No evidence of consolidating infiltrate. Electronically signed by: Shaquille Fox MD (05/15/2019 2:11 PM) [facility] DICTATED AND SIGNED BY: SHAQUILLE FOX MD DATE: 05/15/19 1411 CC: LOW MOREJON MD; ALISON MACHADO DO ~ Course & Med Decision Making Course & Med Decision Making Pertinent Labs and Imaging studies reviewed. (See chart for details) []lytes look good trop neg does not sound like acs heart score is h 0 e 0 a 0 r 0 t 0 two troponins negative. pt reassured. Dragon Disclaimer Dragon Disclaimer This electronic medical record was generated, in whole or in part, using a voice recognition dictation system. Departure Departure: Impression: Primary Impression: Palpitations Disposition: 01 HOME, SELF-CARE Condition: STABLE Patient Instructions: Palpitations, [id number] LOW MOREJON MD May 15, 2019 15:25
[2019-05-15 15:40] VITALS: BP 122/72
--- NOTE | 2019-05-15 19:31 | EKG ---
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
== END 2019-05-15 15:40 | disposition home or self-care (01) ==
LOC: ER 13:09
DX: R00.2 Palpitations (principal); R55 Syncope and collapse; R07.89 Other chest pain; F17.200 Nicotine dependence, unspecified, uncomplicated; F41.9 Anxiety disorder, unspecified; K50.90 Crohn's disease, unspecified, without complications; Z88.8 Allergy status to other drugs, medicaments and biological substances
CPT/HCPCS: 36415; 71045; 80053; 81025; 84484; 85025; 93005; 99285

== ENCOUNTER 2019-08-02 19:46 | Emergency (ER) | payer SELFPAY ==
[~2019-08-02] VITALS: Ht 177.8 cm; Wt 59.6 kg
[~2019-08-02 19:46] MED LIST changes: +OMEP40CA45 PO; -OMEP40CA5 PO
--- NOTE | 2019-08-02 19:57 | PHYS DOC ---
Past History Past Medical History: Anxiety, Arrhythmia, Cancer, Diverticulitis, Ovarian Cyst, Pancreatitis, UTI, Other Additional Past Medical Histor: Chron's Disease, Gastroparesis Past Surgical History: Cholecystectomy, Colectomy, Other Smoking: Less than 1pk/day Alcohol Use: None Drug Use: None Adult General Chief Complaint Chief Complaint: MULTIPLE COMPLAINTS.. " I got lots of problems.. but I had some really fast heart rate... and felt like my heart was going to come up and out of my mouth.. I ve had PSVT before.. .. but this was really bad.. It started 45 mlinutes ago... it better now... I have been drinking more caffine... I got nauseated.. " HPI HPI Patient is a 44 year old female who presents with above hx and complaints dysrhythmia-tachycardia. Patient has had proximal supraventricular tachycardia in past. Patient has been indulging in frequent caffeine use today. Patient denies any drug use. No specific ill contacts. Has had episodes of hypokalemia in the past. No recent travel. Currently patient reports her symptoms have res olved. Review of Systems Review of Systems Constitutional: Denies fever or chills [] Eyes: Denies change in visual acuity, redness, or eye pain [] HENT: Denies nasal congestion or sore throat [] Respiratory: Denies cough or shortness of breath [] Cardiovascular: No additional information not addressed in HPI [] GI: Denies abdominal pain, nausea, vomiting, bloody stools or diarrhea [] : Denies dysuria or hematuria [] Musculoskeletal: Denies back pain or joint pain [] Integument: Denies rash or skin lesions [] Neurologic: Denies headache, focal weakness or sensory changes [] Endocrine: Denies polyuria or polydipsia [] All other systems were reviewed and found to be within normal limits, except as documented in this note. Family History Family History Noncontributory Current Medications Current Medications See nursing for home meds Allergies Allergies Allergies Coded Allergies Type Severity Reaction Last Updated Verified citalopram Allergy Unknown 03/25/19 Yes nitroglycerin Allergy Unknown 03/25/19 Yes Physical Exam Physical Exam Constitutional: Moderately acute distress, non-toxic appearance. [] HENT: Normocephalic, atraumatic, bilateral external ears normal, oropharynx moist, no oral exudates, nose normal. [] Eyes: PERRLA, EOMI, conjunctiva normal, no discharge. [] Neck: Normal range of motion, no tenderness, supple, no stridor. [] Cardiovascular: Tachycardia Heart rate regular rhythm, no murmur [] Lungs & Thorax: Bilateral breath sounds equal apex with scattered wheezes on auscultation [] Abdomen: Bowel sounds normal, soft, no tenderness, no masses, no pulsatile masses. [] Old surgery scars. Skin: Warm, dry, no erythema, no rash. [] Back: No tenderness, no CVA tenderness. [] Extremities: No tenderness, no cyanosis, no clubbing, ROM intact, no edema. [] According. Neurologic: Alert and oriented X 3, normal motor function, normal sensory function, no focal deficits noted. [] Psychologic: Affect anxious, judgement normal, mood normal. [] EKG EKG My interpretation EKG shows a sinus rhythm at 94 bpm. Some nonspecific anterior lateral changes. But no findings of acute STEMI of contralateral changes.[] My interpretation of second EKG shows sinus rhythm at 80 bpm. There have been some change in lead sticker placement. No findings acute STEMI of contralateral changes. Wall morphology is equal to prior EKG but slower rate Radiology/Procedures Radiology/Procedures [][address] [address] IMAGING REPORT Signed PATIENT: ALEKSANDR SANCHEZ ACCOUNT: [id number] : 1975 LOCATION: ER AGE: 44 SEX: F EXAM STATUS: PRE ER ORD. PHYSICIAN: LEXY BRITO MD REASON: pain, DRY HEAVES. PROCEDURE: ACUTE ABDOMEN SERIES EXAM: Abdomen acute complete HISTORY: Pain. COMPARISON: 05/15/2019 FINDINGS: A frontal view of the chest and frontal upright and supine views of abdomen are obtained. There is no infiltrate, pleural effusion or pneumothorax. The heart is normal in size. There is a small amount of gas and stool within the colon. No abnormally dilated loop of bowel seen. There are cholecystectomy clips. There is no free air. There are pelvic phleboliths. IMPRESSION: 1. No acute pulmonary finding. 2. Nonobstructive bowel gas pattern. Electronically signed by: Susan Gomez MD (08/02/2019 8:41 PM) [facility] DICTATED AND SIGNED BY: SUSAN GOMEZ MD DATE: 08/02/192040 CC: LEXY BRITO MD; ALISON MACHADO DO ~ Course & Med Decision Making Course & Med Decision Making Pertinent Labs and Imaging studies reviewed. (See chart for details) Patient declines admission at this time. Patient to reduce her caffeine use. Patient take a daily aspirin. Patient follow-up primary care. Patient return of any concerns. Patient push fruit juices. Patient review all labs and workup with primary care. Impression: 1. Dysrhythmia complaints-tachycardia 2. Urinary tract infection 3. Hypokalemia 3.1 Note there was a computer shut down during pt. work up, there may be missing information or duplication of record. [] Dragon Disclaimer Dragon Disclaimer This electronic medical record was generated, in whole or in part, using a voice recognition dictation system. Departure Departure: Disposition: 01 HOME/RESIDENCE PRIOR TO ADM Condition: STABLE Referrals: ALISON MACHADO DO (PCP) Dragon Disclaimer This chart was dictated in whole or in part using Voice Recognition software in a busy, high-work load, and often noisy Emergency Department environment. It may contain unintended and wholly unrecognized errors or omissions. Dragon Disclaimer This chart was dictated in whole or in part using Voice Recognition software in a busy, high-work load, and often noisy Emergency Department environment. It may contain unintended and wholly unrecognized errors or omissions. LEXY BRITO MD Aug 02, 2019 19:57
[2019-08-02] MEDS ORDERED: IV RINGERS SOLUTION,LACTATED 1,000 ML IV SCH (19:58)
[2019-08-02] MEDS ORDERED: FAMOTIDINE 20 MG/2 ML VIAL IVP ONE (20:00)
[2019-08-02] MEDS ORDERED: ONDANSETRON PF 4 MG/2 ML VIAL. IVP ONE (20:00)
[2019-08-02 20:30] LABS: BARBITURATES NEG (NEG); BENZODIAZEPINES NEG (NEG); CANNABINOIDS NEG (NEG); COCAINE NEG (NEG); METHADONE NEG (NEG); OPIATES NEG (NEG); PHENCYCLIDINE NEG (NEG)
[2019-08-02 20:34] LABS: BACTERIA,URINE MANY /HPF (0-FEW); BILIRUBIN,URINE NEG (NEG); CLARITY,URINE HAZY; COLOR,URINE STRAW; GLUCOSE,URINE NEG (NEG); NITRITE,URINE NEG (NEG); UROBILINOGEN,URINE 0.2 mg/dL (0.2 mg/dL)
[2019-08-02 20:35] LABS: SQUAMOUS EPITHELIAL CELL,UR OCC /LPF
[2019-08-02 20:36] LABS: BASO # 0.1 x10^3/uL (0.0-0.2); BASO % 1 % (0-3); EOS # 0.2 x10^3/uL (0.0-0.7); EOS % 3 % (0-3); HEMATOCRIT 37.8 % (36.0-47.0); HEMOGLOBIN 12.3 g/dL (12.0-15.5); LYMPH # 2.1 x10^3/uL (1.0-4.8); LYMPH % 27 % (24-48); MEAN CORPUSCULAR HEMOGLOBIN 28 pg (25-35); MEAN CORPUSCULAR HGB CONC 33 g/dL (31-37); MEAN CORPUSCULAR VOLUME 87 fL (79-100); MONO # 0.6 x10^3/uL (0.0-1.1); MONO % 8 % (0-9); NEUT # 4.7 x10^3uL (1.8-7.7); NEUT % 62 % (31-73); PLATELET COUNT 261 x10^3/uL (140-400); RED BLOOD COUNT 4.34 x10^6/uL (3.50-5.40); WHITE BLOOD COUNT 7.7 x10^3/uL (4.0-11.0)
[2019-08-02 20:37] LABS: AMPHETAMINE/METHAMPHETAMINE NEG (NEG)
--- NOTE | 2019-08-02 20:43 | RAD ---
EXAM: Abdomen acute complete HISTORY: Pain. COMPARISON: 05/15/2019 FINDINGS: A frontal view of the chest and frontal upright and supine views of abdomen are obtained. There is no infiltrate, pleural effusion or pneumothorax. The heart is normal in size. There is a small amount of gas and stool within the colon. No abnormally dilated loop of bowel seen. There are cholecystectomy clips. There is no free air. There are pelvic phleboliths. IMPRESSION: 1. No acute pulmonary finding. 2. Nonobstructive bowel gas pattern. Electronically signed by: Susan Barnes MD (08/02/2019 8:41 PM) [facility]
[2019-08-02 20:49] LABS: ALBUMIN 3.6 g/dL (3.4-5.0); CALCIUM 8.3 mg/dL (8.5-10.1); CREATININE 0.5 mg/dL (0.6-1.0); DIRECT BILIRUBIN 0.1 mg/dL (0.0-0.2); GFR 135.3; POTASSIUM 3.1 mmol/L (3.5-5.1); TOTAL BILIRUBIN 0.2 mg/dL (0.2-1.0); TOTAL PROTEIN 6.8 g/dL (6.4-8.2)
[2019-08-02] MEDS ORDERED: MAGNESIUM HYDROXIDE 2,400 MG/30 ML ORAL.SUSP. PO ONE (22:00)
[2019-08-02] MEDS ORDERED: SMZ/TMP 800/160MG TABLET. PO ONE (22:00)
[2019-08-02] MEDS ORDERED: POTASSIUM CHLORIDE 20 MEQ TABLET.ER. PO ONE (22:00)
[2019-08-02 23:25] VITALS: BP 108/70
--- NOTE | 2019-08-03 01:50 | EKG ---
[address] [address] Test Date: 2019-08-02 Test Time: 22:20:00 Pat Name: ALEKSANDR SANCHEZ Department: Room: Gender: F [employer]: : 1975 Requested By: LEXY BRITO Order Number: [id number] Reading MD: Jimi Palma Measurements Intervals [place] Rate: 80 P: 27 [place]: 138 QRS: 30 QRSD: 88 T: 28 QT: 398 QTc: 463 Interpretive Statements SINUS RHYTHM Electronically Signed On 08-03-2019 13:57:53 GRAPHIC ART TECHNICIAN by Jimi Palma
--- NOTE | 2019-08-03 01:53 | EKG ---
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
== END 2019-08-02 23:25 | disposition home or self-care (01) ==
LOC: ER 19:46
DX: R00.0 Tachycardia, unspecified (principal); N39.0 Urinary tract infection, site not specified; E87.6 Hypokalemia; F41.9 Anxiety disorder, unspecified; F17.200 Nicotine dependence, unspecified, uncomplicated; Z87.440 Personal history of urinary (tract) infections; Z88.8 Allergy status to other drugs, medicaments and biological substances
CPT/HCPCS: 36415; 74022; 80048; 80076; 80307; 81001; 81025; 82150; 82550; 83690; 84484; 85025; 85610; 85730; 87086; 93005; 96374; 96375; 99285; J2405; J3490; J7120

== ENCOUNTER 2019-12-03 19:56 | Emergency (ER) | payer OTHER ==
[~2019-12-03] VITALS: Ht 177.8 cm; Wt 63.4 kg
[2019-12-03] MEDS ORDERED: IV NORMAL SALINE 1,000ML 1,000 ML IV SCH (20:27)
[2019-12-03] MEDS ORDERED: ONDANSETRON PF 4 MG/2 ML VIAL. IVP ONE (20:30)
[2019-12-03] MEDS ORDERED: IOHEXOL 300 MG/ML 75 ML VIAL. IV ONE (20:45)
[2019-12-03 20:49] LABS: BASO % 1 % (0-3); EOS # 0.2 x10^3/uL (0.0-0.7); EOS % 2 % (0-3); HEMATOCRIT 38.4 % (36.0-47.0); HEMOGLOBIN 12.5 g/dL (12.0-15.5); LYMPH # 1.8 x10^3/uL (1.0-4.8); LYMPH % 24 % (24-48); MEAN CORPUSCULAR HEMOGLOBIN 28 pg (25-35); MEAN CORPUSCULAR HGB CONC 33 g/dL (31-37); MEAN CORPUSCULAR VOLUME 85 fL (79-100); MONO # 0.4 x10^3/uL (0.0-1.1); MONO % 6 % (0-9); NEUT # 4.9 x10^3uL (1.8-7.7); NEUT % 67 % (31-73); PLATELET COUNT 249 x10^3/uL (140-400); RED BLOOD COUNT 4.55 x10^6/uL (3.50-5.40); RED CELL DISTRIBUTION WIDTH 15.9 % (11.5-14.5); WHITE BLOOD COUNT 7.4 x10^3/uL (4.0-11.0)
[2019-12-03 21:09] LABS: CREATININE 0.6 mg/dL (0.6-1.0); GFR 109.6; POTASSIUM 3.2 mmol/L (3.5-5.1)
[2019-12-03 21:12] LABS: ALBUMIN 3.6 g/dL (3.4-5.0); ALBUMIN/GLOBULIN RATIO 1.1 (1.0-1.7); BACTERIA,URINE 0 /HPF (0-FEW); BILIRUBIN,URINE NEG (NEG); CLARITY,URINE CLEAR; COLOR,URINE STRAW; GLUCOSE,URINE NEG (NEG); NITRITE,URINE NEG (NEG); SQUAMOUS EPITHELIAL CELL,UR OCC /LPF; TOTAL BILIRUBIN 0.2 mg/dL (0.2-1.0); TOTAL PROTEIN 6.9 g/dL (6.4-8.2); UROBILINOGEN,URINE 0.2 mg/dL (0.2 mg/dL); WBC,URINE OCC /HPF (0-4)
[2019-12-03] MEDS ORDERED: MECL12.573 PO (21:42)
[2019-12-03] MEDS ORDERED: CLON1TAB PO (21:43)
[2019-12-03] MEDS ORDERED: METR500T PO (21:43)
--- NOTE | 2019-12-03 21:46 | RAD ---
Exam: CT of abdomen and pelvis with contrast INDICATION: Lower abdominal pain TECHNIQUE: Sequential axial images through the abdomen and pelvis obtained following the administration of 75 mL of Omni 300 IV contrast. Sagittal and coronal reformatted images were reconstructed from the axial data and reviewed. Comparisons: 03/25/2018 FINDINGS: Heart size is normal. No pericardial effusion. Visualized lung bases are clear. No pleural effusion. Liver, spleen, pancreas, and adrenals are unremarkable. Gallbladder is surgically absent. Kidneys demonstrate symmetric enhancement. No perinephric inflammation or hydronephrosis. No renal or ureteral calculi are identified. Bladder is distended and appears thin-walled. Uterus is nonenlarged. No abnormal adnexal mass. There is a cystic lesion at the right adnexa measuring 2.6 cm. Few scattered diverticula without evidence of acute diverticulitis. Appendix is normal. No obstruction. No free intra-abdominal air or fluid. Abdominal aorta has a normal course and caliber. Abdominal vasculature is patent. No enlarged abdominal lymph nodes are identified. No suspicious osseous lesions or acute fractures. IMPRESSION: 1. Diverticulosis at the descending and sigmoid colon without evidence of acute diverticulitis. 2. A 2.6 cm cystic lesion at the right adnexa, likely ovarian in etiology. Incompletely evaluated on CT. Exposure: One or more of the following in the visualized dose reduction techniques were utilized for this examination: 1. Automated exposure control 2. Adjustment of the MA and/or KV according to patient size 3. Use of iterative of reconstructive technique Electronically signed by: Shelly Kimble MD (12/03/2019 9:43 PM) [id number]
[2019-12-03] MEDS ORDERED: KETOROLAC 30 MG/ML VIAL. ONE (22:02)
[2019-12-03] MEDS ORDERED: KETOROLAC 30 MG/ML VIAL. IVP ONE (22:15)
[2019-12-03 22:25] VITALS: BP 110/72
[2019-12-03] MEDS ORDERED: POTASSIUM CHLORIDE 20 MEQ TABLET.ER. PO ONE (22:30)
[2019-12-03] MEDS ORDERED: ONDA4TAB12 PO (22:31)
[2019-12-03] MEDS ORDERED: HYDR-3165 PO (22:31)
--- NOTE | 2019-12-03 22:31 | PHYS DOC ---
Past History Past Medical History: Anxiety, Arrhythmia, Cancer, Diverticulitis, Ovarian Cyst, Pancreatitis, UTI, Other Additional Past Medical Histor: crohns, gastroparesis,hypopotassium;PSVT, SVT, MRSA, endometriosis Past Surgical History: Cholecystectomy, Colectomy, Other Additional Past Surgical Histo: mult bx on colon for crohns, diverticulitis, bx for endometriosis Smoking: Less than 1pk/day Alcohol Use: None Drug Use: None Adult General Chief Complaint Chief Complaint: ABDOMINAL PAIN HPI HPI Patient is a 44-year-old female who presents with complaint of lower abdominal pain and pressure the last few days. Patient just recently finished having a long period, lasting approximately 5 weeks. Patient has seen [employer] and is supposed to be getting hysterectomy but is not able to get that done until elective surgeries. Patient rates the pain as moderate at about a 7 out of 10 at this time. Patient denies any vomiting or diarrhea. She states that nothing is improving her symptoms.[] Review of Systems Review of Systems Constitutional: Denies fever or chills [] Respiratory: Denies cough or shortness of breath [] Cardiovascular: No additional information not addressed in HPI [] GI: Complains of lower abdominal pain without vomiting or diarrhea [] : Denies dysuria or hematuria [] Neurologic: Denies headache, focal weakness or sensory changes [] All other systems were reviewed and found to be within normal limits, except as documented in this note. Current Medications Current Medications Current Medications Medications (Trade) Dose Ordered Sig/Derek Start Time Stop Time Status Last Admin Dose Admin Fentanyl Citrate (Fentanyl 2ml Vial) 25 mcg PRN Q15MIN PRN 12/03/19 20:30 12/04/19 20:29 Iohexol (Omnipaque 300 Mg/ml) 75 ml 1X ONCE 12/03/19 20:45 12/03/19 20:46 DC 12/03/19 21:20 75 ML Ketorolac Tromethamine (Toradol 30mg Vial) 30 mg 1X ONCE 12/03/19 22:15 12/03/19 22:16 DC 12/03/19 22:04 30 MG Ondansetron HCl (Zofran) 4 mg 1X ONCE 12/03/19 20:30 12/03/19 20:31 DC 12/03/19 20:45 4 MG Sodium Chloride 1,000 ml @ 1,000 mls/hr Q1H 12/03/19 20:27 12/03/19 21:26 DC 12/03/19 20:46 1,000 MLS/HR Allergies Allergies Allergies Coded Allergies Type Severity Reaction Last Updated Verified citalopram Allergy Unknown 03/25/19 Yes nitroglycerin Allergy Unknown 03/25/19 Yes Physical Exam Physical Exam Constitutional: Well developed, well nourished, no acute distress, non-toxic appearance. [] HENT: Normocephalic, atraumatic, bilateral external ears normal, oropharynx moist, no oral exudates, nose normal. [] Eyes: PERRLA, EOMI, conjunctiva normal, no discharge. [] Neck: Normal range of motion, no tenderness, supple, no stridor. [] Cardiovascular:Heart rate regular rhythm, no murmur [] Lungs & Thorax: Bilateral breath sounds clear to auscultation [] Abdomen: Bowel sounds normal, soft, with lower abdominal tenderness. [] Skin: Warm, dry, no erythema, no rash. [] Extremities: No tenderness, no cyanosis, no clubbing, ROM intact. [] Neurologic: Alert and oriented X 3, no focal deficits noted. [] Current Patient Data Vital Signs Vital Signs Date Time Temp Pulse Resp B/P (MAP) Pulse Ox O2 Delivery O2 Flow Rate FiO2 12/03/19 20:00 98.5 93 18 134/88 (103) 100 Room Air Lab Results Laboratory Tests Test 12/03/19 20:15 12/03/19 20:35 White Blood Count 7.4 x10^3/uL (4.0-11.0) Red Blood Count 4.55 x10^6/uL (3.50-5.40) Hemoglobin 12.5 g/dL (12.0-15.5) Hematocrit 38.4 % (36.0-47.0) Mean Corpuscular Volume 85 fL (79-100) Mean Corpuscular Hemoglobin 28 pg (25-35) Mean Corpuscular Hemoglobin Concent 33 g/dL (31-37) Red Cell Distribution Width 15.9 % (11.5-14.5) H Platelet Count 249 x10^3/uL (140-400) Neutrophils (%) (Auto) 67 % (31-73) Lymphocytes (%) (Auto) 24 % (24-48) Monocytes (%) (Auto) 6 % (0-9) Eosinophils (%) (Auto) 2 % (0-3) Basophils (%) (Auto) 1 % (0-3) Neutrophils # (Auto) 4.9 x10^3uL (1.8-7.7) Lymphocytes # (Auto) 1.8 x10^3/uL (1.0-4.8) Monocytes # (Auto) 0.4 x10^3/uL (0.0-1.1) Eosinophils # (Auto) 0.2 x10^3/uL (0.0-0.7) Basophils # (Auto) 0.0 x10^3/uL (0.0-0.2) Urine Collection Type Void Urine Color Straw Urine Clarity Clear Urine pH 7.0 Urine Specific [place] 1.010 Urine Protein Neg (NEG-TRACE) Urine Glucose (UA) Neg mg/dL (NEG) Urine Ketones (Stick) Neg mg/dL (NEG) Urine Blood Large (NEG) Urine Nitrite Neg (NEG) Urine Bilirubin Neg (NEG) Urine Urobilinogen Dipstick 0.2 mg/dL (0.2 mg/dL) Urine Leukocyte Esterase Neg (NEG) Urine RBC 1-2 /HPF (0-2) Urine WBC Occ /HPF (0-4) Urine Squamous Epithelial Cells Occ /LPF Urine Bacteria 0 /HPF (0-FEW) Sodium Level 141 mmol/L (136-145) Potassium Level 3.2 mmol/L (3.5-5.1) L Chloride Level 106 mmol/L (98-107) Carbon Dioxide Level 25 mmol/L (21-32) Anion Gap 10 (6-14) Blood Urea Nitrogen 5 mg/dL (7-20) L Creatinine 0.6 mg/dL (0.6-1.0) Estimated GFR (Cockcroft-Gault) 109.6 BUN/Creatinine Ratio 8 (6-20) Glucose Level 85 mg/dL (70-99) Calcium Level 9.0 mg/dL (8.5-10.1) Total Bilirubin 0.2 mg/dL (0.2-1.0) Aspartate Amino Transferase (AST) 14 U/L (15-37) L Alanine Aminotransferase (ALT) 17 U/L (14-59) Alkaline Phosphatase 67 U/L (46-116) Total Protein 6.9 g/dL (6.4-8.2) Albumin 3.6 g/dL (3.4-5.0) Albumin/Globulin Ratio 1.1 (1.0-1.7) Lipase 116 U/L (73-393) POC Urine HCG, Qualitative hcg negative (Negative) EKG EKG [] Radiology/Procedures Radiology/Procedures [] Impressions: PROCEDURE: CT ABD PELV W/ IV CONTRST ONLY Exam: CT of abdomen and pelvis with contrast INDICATION: Lower abdominal pain TECHNIQUE: Sequential axial images through the abdomen and pelvis obtained following the administration of 75 mL of Omni 300 IV contrast. Sagittal and coronal reformatted images were reconstructed from the axial data and reviewed. Comparisons: 03/25/2018 FINDINGS: Heart size is normal. No pericardial effusion. Visualized lung bases are clear. No pleural effusion. Liver, spleen, pancreas, and adrenals are unremarkable. Gallbladder is surgically absent. Kidneys demonstrate symmetric enhancement. No perinephric inflammation or hydronephrosis. No renal or ureteral calculi are identified. Bladder is distended and appears thin-walled. Uterus is nonenlarged. No abnormal adnexal mass. There is a cystic lesion at the right adnexa measuring 2.6 cm. Few scattered diverticula without evidence of acute diverticulitis. Appendix is normal. No obstruction. No free intra-abdominal air or fluid. Abdominal aorta has a normal course and caliber. Abdominal vasculature is patent. No enlarged abdominal lymph nodes are identified. No suspicious osseous lesions or acute fractures. IMPRESSION: 1. Diverticulosis at the descending and sigmoid colon without evidence of acute diverticulitis. 2. A 2.6 cm cystic lesion at the right adnexa, likely ovarian in etiology. Incompletely evaluated on CT. Exposure: One or more of the following in the visualized dose reduction techniques were utilized for this examination: 1. Automated exposure control 2. Adjustment of the MA and/or KV according to patient size 3. Use of iterative of reconstructive technique Electronically signed by: Shelly Dasilva MD (12/03/2019 9:43 PM) [id number] DICTATED AND SIGNED BY: SHELLY DASILVA MD DATE: 12/03/19 214 CC: MARIA G KEYS Jr. DO; ALISON MACHADO DO ~ Course & Med Decision Making Course & Med Decision Making Pertinent Labs and Imaging studies reviewed. (See chart for details) [] Dragon Disclaimer Dragon Disclaimer This electronic medical record was generated, in whole or in part, using a voice recognition dictation system. Departure Departure: Impression: Primary Impression: Lower abdominal pain Additional Impressions: Ovarian cyst Hypokalemia Disposition: 01 HOME, SELF-CARE Condition: STABLE Referrals: ALISON MACHADO DO (PCP) Patient Instructions: Abdominal Pain, Hypokalemia, Ovarian Cyst Scripts Ondansetron (ONDANSETRON ODT) 4 Mg Tab.rapdis 1 TAB PO PRN Q6-8HRS PRN for NAUSEA, #12 TAB Prov: MARIA G KEYS Jr. DO 12/03/19 Hydrocodone Bit/Acetaminophen (NORCO 5-325 TABLET) 1 Each Tablet 1 TAB PO PRN Q6HRS PRN for PAIN, #12 TAB 0 Refills Prov: MARIA G KEYS Jr. DO 12/03/19 Problem Qualifiers Additional Impressions: Ovarian cyst Laterality: right Qualified Codes: N83.201 - Unspecified ovarian cyst, right side MARIA G KEYS Jr. DO Dec 03, 2019 22:31
== END 2019-12-03 22:45 | disposition home or self-care (01) ==
LOC: ER 19:56
DX: N83.201 Unspecified ovarian cyst, right side (principal); E87.6 Hypokalemia; F17.200 Nicotine dependence, unspecified, uncomplicated; Z87.440 Personal history of urinary (tract) infections; Z88.8 Allergy status to other drugs, medicaments and biological substances; Z90.49 Acquired absence of other specified parts of digestive tract
CPT/HCPCS: 36415; 74177; 80053; 81001; 81025; 83690; 85025; 96374; 99285; J1885; J2405; Q9967; J7030

== ENCOUNTER 2020-02-06 13:13 | Emergency (ER) | payer OTHER ==
[~2020-02-06] VITALS: Ht 175.3 cm; Wt 62.0 kg
[~2020-02-06 13:13] MED LIST changes: +CLON1TAB PO; +HYDR-3165 PO; +MECL12.573 PO; +METR500T PO
[2020-02-06] MEDS ORDERED: IOHEXOL 300 MG/ML 75 ML VIAL. IV ONE (14:00)
[2020-02-06] MEDS ORDERED: IV NORMAL SALINE 1,000ML 1,000 ML IV ONE (14:00)
[2020-02-06] MEDS ORDERED: ONDANSETRON PF 4 MG/2 ML VIAL. IVP ONE (14:00)
[2020-02-06 14:07] LABS: BASO # 0.1 x10^3/uL (0.0-0.2); BASO % 1 % (0-3); EOS # 0.6 x10^3/uL (0.0-0.7); EOS % 9 % (0-3); HEMATOCRIT 37.3 % (36.0-47.0); HEMOGLOBIN 12.5 g/dL (12.0-15.5); LYMPH # 1.9 x10^3/uL (1.0-4.8); LYMPH % 29 % (24-48); MEAN CORPUSCULAR HEMOGLOBIN 28 pg (25-35); MEAN CORPUSCULAR HGB CONC 34 g/dL (31-37); MEAN CORPUSCULAR VOLUME 84 fL (79-100); MONO # 0.4 x10^3/uL (0.0-1.1); MONO % 7 % (0-9); NEUT # 3.5 x10^3uL (1.8-7.7); NEUT % 54 % (31-73); PLATELET COUNT 271 x10^3/uL (140-400); RED BLOOD COUNT 4.41 x10^6/uL (3.50-5.40); RED CELL DISTRIBUTION WIDTH 14.9 % (11.5-14.5); WHITE BLOOD COUNT 6.5 x10^3/uL (4.0-11.0)
[2020-02-06 14:17] LABS: CALCIUM 8.7 mg/dL (8.5-10.1); CREATININE 0.6 mg/dL (0.6-1.0); GFR 109.6; POTASSIUM 3.6 mmol/L (3.5-5.1)
[2020-02-06 14:22] LABS: ALBUMIN 3.3 g/dL (3.4-5.0); ALBUMIN/GLOBULIN RATIO 0.9 (1.0-1.7); TOTAL BILIRUBIN 0.2 mg/dL (0.2-1.0)
[2020-02-06] MEDS ORDERED: MORPHINE SULFATE 2 MG/ML DISP.SYRIN. ONE (14:22)
[2020-02-06] MEDS ORDERED: MORPHINE SULFATE 2 MG/ML DISP.SYRIN. IV ONE (14:30)
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
[2020-02-06 15:34] VITALS: BP 102/68
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
[2020-02-06 16:15] LABS: CLARITY,URINE CLEAR; COLOR,URINE STRAW
[2020-02-06 16:16] LABS: BACTERIA,URINE FEW /HPF (0-FEW); BILIRUBIN,URINE NEG (NEG); GLUCOSE,URINE NEG (NEG); NITRITE,URINE NEG (NEG); RBC,URINE 0 /HPF (0-2); SQUAMOUS EPITHELIAL CELL,UR OCC /LPF; UROBILINOGEN,URINE 0.2 mg/dL (0.2 mg/dL); WBC,URINE OCC /HPF (0-4)
== END 2020-02-06 15:50 | disposition home or self-care (01) ==
LOC: ER 13:13
DX: S39.91XA Unspecified injury of abdomen, initial encounter (principal); F41.9 Anxiety disorder, unspecified; F17.200 Nicotine dependence, unspecified, uncomplicated; Z87.440 Personal history of urinary (tract) infections; Z90.49 Acquired absence of other specified parts of digestive tract; Z88.8 Allergy status to other drugs, medicaments and biological substances; W51.XXXA Accidental striking against or bumped into by another person, initial encounter; Y93.89 Activity, other specified; Y92.89 Other specified places as the place of occurrence of the external cause; Y99.8 Other external cause status; Z90.710 Acquired absence of both cervix and uterus
CPT/HCPCS: 36415; 74177; 80053; 81001; 85025; 96374; 99285; J2405; Q9967; J7030

== ENCOUNTER 2020-04-01 01:39 | Emergency (ER) | payer OTHER ==
[~2020-04-01] VITALS: Ht 175.3 cm; Wt 59.0 kg
[2020-04-01 01:39] VITALS: BP 110/91
[2020-04-01] MEDS ORDERED: LIDOCAINE 2% 20 ML VIAL. ONE (01:54)
[2020-04-01] MEDS ORDERED: DIPH,PERTUSS(ACELL),TET VAC/PF 0.5 ML SYRINGE. VAX IM ONE ×2 (01:54→02:15)
[2020-04-01] MEDS ORDERED: NEOMY/BACITR/POLYMYXIN OINT PACKET. TP ONE ×2 (01:55→02:15)
--- NOTE | 2020-04-01 02:08 | PHYS DOC ---
Past History Past Medical History: Anxiety, Arrhythmia, Cancer, Diverticulitis, Ovarian Cyst, Pancreatitis, UTI, Other Additional Past Medical Histor: crohns, gastroparesis,hypopotassium;PSVT, SVT, MRSA, endometriosis Past Surgical History: Cholecystectomy, Colectomy, Other Additional Past Surgical Histo: mult bx on colon for crohns, diverticulitis, bx for endometriosis Smoking: Less than 1pk/day Alcohol Use: None Drug Use: None General Adult EDM: Chief Complaint: LACERATION/AVULSION HPI: HPI: ".. My was drunk.. and he got me pissed off.. and... I went to wash dishes.. and I slammed my arm down.. and caught knife edge that was standing up in the sink.. .. .. I ripped open my Lt. arm.. ".. ".. It was bleeding pretty good.. ".. 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 Patient has approximately 15 cm long laceration of medial side of left forearm. The skin does flap, but does not appear to involve muscle belly, tendons or ligaments. There is a portion of the laceration skin flap that appears to be avascular.. Is intact and equal to right hand. Patient does not remember her last tetanus shot. Patient does have history of inflammatory bowel issues. Patient denies taking any immunosuppressant drugs currently. Patient denies any travel. 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 Patient normally follows with . at [facility] clinic off . [facility] [address]. . Review of Systems: Review of Systems: Constitutional: Denies fever or chills Eyes: Denies change in visual acuity HENT: Denies nasal congestion or sore throat Respiratory: Denies cough or shortness of breath Cardiovascular: Denies chest pain or edema GI: Denies abdominal pain, nausea, vomiting, bloody stools or diarrhea : Denies dysuria Musculoskeletal: Denies back pain or joint pain Integument: Denies rash Neurologic: Denies headache, focal weakness or sensory changes Endocrine: Denies polyuria or polydipsia Lymphatic: Denies swollen glands Psychiatric: Denies depression or anxiety Heart Score: Risk Factors: Risk Factors: DM, Current or recent (<one month) smoker, HTN, HLP, family history of CAD, obesity. Risk Scores: Score 0 - 3: 2.5% MACE over next 6 weeks - Discharge Home Score 4 - 6: 20.3% MACE over next 6 weeks - Admit for Clinical Observation Score 7 - 10: 72.7% MACE over next 6 weeks - Early Invasive Strategies Family History: Family History: Noncontributory to presentation Current Medications: Current Meds: Current Medications Medications (Trade) Dose Ordered Sig/Derek Start Time Stop Time Status Last Admin Dose Admin Diphtheria/ Pertussis/Tetanus Vacc (ADACEL TDap SYRINGE) 0.5 ml STK-MED ONCE 04/01/20 01:54 04/01/20 01:55 DC Lidocaine HCl 20 ml STK-MED ONCE 04/01/20 01:54 04/01/20 01:54 DC Neomycin/ Polymyxin/ Bacitracin (Triple Antibiotic Ointment) 1 pkt STK-MED ONCE 04/01/20 01:55 04/01/20 01:55 DC Allergies: Allergies: Allergies Coded Allergies Type Severity Reaction Last Updated Verified citalopram Allergy Unknown 03/25/19 Yes nitroglycerin Allergy Unknown 03/25/19 Yes Physical Exam: PE: Constitutional: Well developed, well nourished, moderate acute distress, non- toxic appearance. [] HENT: Normocephalic, atraumatic, bilateral external ears normal, oropharynx moist, no oral exudates, nose normal. [] Eyes: PERRLA, EOMI, conjunctiva normal, no discharge. [] Neck: Normal range of motion, no tenderness, supple, no stridor. [] Cardiovascular:Heart rate regular rhythm, no murmur [] Lungs & Thorax: Bilateral breath sounds clear to auscultation [] Abdomen: Bowel sounds normal, soft, no tenderness, no masses, no pulsatile masses. [] Multiple surgery scars Skin: Warm, dry, no erythema, no rash. [] Back: No tenderness, no CVA tenderness. [] Extremities: No tenderness, no cyanosis, no clubbing, ROM intact, no edema. [] Laceration left forearm as per HPI Neurologic: Alert and oriented X 3, normal motor function, normal sensory function, no focal deficits noted. [] Psychologic: Affect anxious and angry l, judgement normal, mood normal. [] EKG: EKG: [] Radiology/Procedures: Radiology/Procedures: [] Course & Med Decision Making: Course & Med Decision Making Pertinent Labs and Imaging studies reviewed. (See chart for details) Procedure note-laceration repair-the 15 cm laceration area irrigated with normal saline. Betadine applied to the edge of wound. Reirrigated with normal saline. Injected into wound with 2% lidocaine. Reirrigated laceration with normal saline in range of motion. Close laceration with 12 ananya. Dressing applied with Polysporin. Patient to keep the dressing clean and dry. If becomes soiled or wet to remove it immediately. Once initial dressing removed after 3 days ( or sooner) to apply Polysporin 4 times a day. [place] to be removed in 10 days. Patient take Tylenol or Ibuprofen for discomfort. Patient to monitor for infection. Patient return if any concerns. Warned patient that an area of the laceration appeared to be avascular and may slough. Patient also advised to keep laceration covered when working at [employer]. Patient advised she will have a significant scar from the laceration which may reduce with time. If unhappy with final scarring may have reduction of scar with plastic surgery. Impression: 1. Laceration- -15 cm Jitendra Disclaimer: Jitendra Disclaimer: This electronic medical record was generated, in whole or in part, using a voice recognition dictation system. Departure Departure: Disposition: 01 HOME/RESIDENCE PRIOR TO ADM Condition: STABLE Referrals: ALISON MACHADO DO (PCP) Justification of Admission: Justification of Admission: Justification of Admission Dx: N/A Jitendra Disclaimer This chart was dictated in whole or in part using Voice Recognition software in a busy, high-work load, and often noisy Emergency Department environment. It may contain unintended and wholly unrecognized errors or omissions. LEXY BRITO MD Apr 01, 2020 02:08
[2020-04-01] MEDS ORDERED: LIDOCAINE 2% 20 ML VIAL. IJ ONE (02:15)
== END 2020-04-01 02:13 | disposition home or self-care (01) ==
LOC: ER 01:39
DX: S51.812A Laceration without foreign body of left forearm, initial encounter (principal); F41.9 Anxiety disorder, unspecified; F17.200 Nicotine dependence, unspecified, uncomplicated; Z87.440 Personal history of urinary (tract) infections; Z88.8 Allergy status to other drugs, medicaments and biological substances; W26.0XXA Contact with knife, initial encounter; Y93.G1 Activity, food preparation and clean up; Y92.89 Other specified places as the place of occurrence of the external cause; Y99.8 Other external cause status
CPT/HCPCS: 12005; 90471; 90715; 99283; J2001

== ENCOUNTER 2020-04-06 15:20 | Emergency (ER) | payer OTHER ==
[~2020-04-06] VITALS: Ht 175.3 cm; Wt 60.1 kg
[2020-04-06 15:20] VITALS: BP 91/59
[2020-04-06] MEDS ORDERED: CEPH-264 PO (16:18)
--- NOTE | 2020-04-06 16:19 | PHYS DOC ---
Past History Past Medical History: Anxiety, Arrhythmia, Cancer, Diverticulitis, Ovarian Cyst, Pancreatitis, UTI, Other Additional Past Medical Histor: crohns, gastroparesis,hypopotassium;PSVT, SVT, MRSA, endometriosis Past Surgical History: Cholecystectomy, Colectomy, Other Additional Past Surgical Histo: mult bx on colon for crohns, diverticulitis, bx for endometriosis Smoking: Less than 1pk/day Alcohol Use: None Drug Use: None General Adult EDM: Chief Complaint: WOUND CHECK HPI: HPI: 44-year-old female presents with wound check of her left forearm. The patient had ananya placed at this facility 5 days ago. She had her arm twisted in that area by someone at work. Since that time, she has noticed 3 the ananya are not in the correct orientation. She is also had a stinging pain sensation and that is why she came in today. She has had no bleeding. The wound is still closed. She denies any other complaints at this time. Review of Systems: Review of Systems: Constitutional: Denies fever or chills Eyes: Denies change in visual acuity HENT: Denies nasal congestion or sore throat Respiratory: Denies cough or shortness of breath Cardiovascular: Denies chest pain or edema GI: Denies abdominal pain, nausea, vomiting, bloody stools or diarrhea : Denies dysuria Musculoskeletal: Denies back pain or joint pain Integument: Crane in the left forearm with erythema and warmth surrounding. Neurologic: Denies headache, focal weakness or sensory changes Endocrine: Denies polyuria or polydipsia Lymphatic: Denies swollen glands Psychiatric: Denies depression or anxiety Heart Score: Risk Factors: Risk Factors: DM, Current or recent (<one month) smoker, HTN, HLP, family history of CAD, obesity. Risk Scores: Score 0 - 3: 2.5% MACE over next 6 weeks - Discharge Home Score 4 - 6: 20.3% MACE over next 6 weeks - Admit for Clinical Observation Score 7 - 10: 72.7% MACE over next 6 weeks - Early Invasive Strategies Allergies: Allergies: Allergies Coded Allergies Type Severity Reaction Last Updated Verified citalopram Allergy Unknown 03/25/19 Yes nitroglycerin Allergy Unknown 03/25/19 Yes Physical Exam: PE: Constitutional: Well developed, well nourished, no acute distress, non-toxic appearance. [] HENT: Normocephalic, atraumatic, bilateral external ears normal, oropharynx moist, no oral exudates, nose normal. [] Eyes: PERRLA, EOMI, conjunctiva normal, no discharge. [] Neck: Normal range of motion, no tenderness, supple, no stridor. [] Cardiovascular:Heart rate regular rhythm, no murmur [] Lungs & Thorax: Bilateral breath sounds clear to auscultation [] Abdomen: Bowel sounds normal, soft, no tenderness, no masses, no pulsatile masses. [] Skin: Crane in the left forearm with some surrounding erythema and warmth. 3 ananya improperly oriented. No bleeding or wound dehiscence. [] Back: No tenderness, no CVA tenderness. [] Extremities: No tenderness, no cyanosis, no clubbing, ROM intact, no edema. [] Neurologic: Alert and oriented X 3, normal motor function, normal sensory function, no focal deficits noted. [] Psychologic: Affect normal, judgement normal, mood normal. [] Current Patient Data: Vital Signs: Vital Signs Date Time Temp Pulse Resp B/P (MAP) Pulse Ox O2 Delivery O2 Flow Rate FiO2 04/06/20 15:20 97.9 91 18 91/59 (70) 96 Room Air EKG: EKG: [] Radiology/Procedures: Radiology/Procedures: [] Course & Med Decision Making: Course & Med Decision Making Pertinent Labs and Imaging studies reviewed. (See chart for details) I was able to remove the 3 ananya that were twisted around sideways or upside down. I left the remaining ananya as it is not time to remove them yet. The area was recovered with gauze and Coban. I will give her Keflex for 7 days for infection prophylaxis. She is stable for discharge at this time. [] Dragon Disclaimer: Jitendra Disclaimer: This electronic medical record was generated, in whole or in part, using a voice recognition dictation system. Departure Departure: Impression: Primary Impression: Laceration of forearm, left Additional Impressions: Removal of ananya Cellulitis Disposition: HOME/RESIDENCE PRIOR TO ADM Condition: STABLE Referrals: ALISON MACHADO DO (PCP) Patient Instructions: Cellulitis, Onsp-zd-Eerl Scripts Cephalexin (KEFLEX) 500 Mg Capsule 1 CAP PO TID for cellulitis for 7 Days, #21 CAP 0 Refills Prov: TIM VARGSA DO 04/06/20 Justification of Admission: Justification of Admission: Justification of Admission Dx: N/A TIM VARGAS DO Apr 06, 2020 16:19
== END 2020-04-06 16:30 | disposition home or self-care (01) ==
LOC: ER 15:20
DX: S51.812D Laceration without foreign body of left forearm, subsequent encounter (principal); L03.114 Cellulitis of left upper limb; F41.9 Anxiety disorder, unspecified; F17.200 Nicotine dependence, unspecified, uncomplicated; Z87.440 Personal history of urinary (tract) infections; Z88.8 Allergy status to other drugs, medicaments and biological substances; X58.XXXD Exposure to other specified factors, subsequent encounter
CPT/HCPCS: 99283

== ENCOUNTER 2020-05-27 15:05 | Emergency (ER) | payer OTHER ==
[~2020-05-27] VITALS: Ht 177.8 cm; Wt 62.1 kg
[~2020-05-27 15:05] MED LIST changes: +CEPH-264 PO
--- NOTE | 2020-05-27 15:42 | PHYS DOC ---
Past History Past Medical History: Anxiety, Arrhythmia, Cancer, Diverticulitis, Ovarian Cyst, Pancreatitis, UTI, Other Additional Past Medical Histor: crohns, gastroparesis,hypopotassium;PSVT, SVT, MRSA, endometriosis Past Surgical History: Cholecystectomy, Colectomy, Other Additional Past Surgical Histo: mult bx on colon for crohns, diverticulitis, bx for endometriosis Smoking: Less than 1pk/day Alcohol Use: None Drug Use: None General Adult EDM: Chief Complaint: FEVER HPI: HPI: 45 yo F PMH endometriosis w/hysterectomy (02/01), chrons, diverticulitis, gastroparesis, and pancreatitis presents to the ed with concern for fever of 99 degrees at home, tmax 100.1 oral, took apap 1000mg. 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 Pt c/o dry cough, fever, body aches, mild sore throat, mild headache and loose watery diarrhea for the past 2 days. Pt is requesting a influenza test, does not want to be tested for covid because she feels like her throat is sore from being tested yesterday. On no control or hormones. Review of Systems: Review of Systems: Constitutional: Denies fever or chills Eyes: Denies change in visual acuity HENT: Denies nasal congestion or sore throat Respiratory: Denies cough or shortness of breath or hemoptysis Cardiovascular: Denies chest pain or syncope GI: Denies abdominal pain, nausea, vomiting, melena, hematochezia or diarrhea : Denies dysuria, hematuria Musculoskeletal: Denies back pain or joint pain or lower extremity edema Integument: Denies rash Neurologic: Denies headache, focal weakness or sensory changes, neck stiffness, blurry vision Endocrine: Denies polyuria or polydipsia Lymphatic: Denies swollen glands Psychiatric: Denies depression or anxiety Heart Score: Risk Factors: Risk Factors: DM, Current or recent (<one month) smoker, HTN, HLP, family history of CAD, obesity. Risk Scores: Score 0 - 3: 2.5% MACE over next 6 weeks - Discharge Home Score 4 - 6: 20.3% MACE over next 6 weeks - Admit for Clinical Observation Score 7 - 10: 72.7% MACE over next 6 weeks - Early Invasive Strategies Allergies: Allergies: Allergies Coded Allergies Type Severity Reaction Last Updated Verified citalopram Allergy Unknown 03/25/19 Yes nitroglycerin Allergy Unknown 03/25/19 Yes Physical Exam: PE: Constitutional: Well developed, well nourished, no acute distress, non-toxic appearance. [] HENT: Normocephalic, atraumatic, bilateral external ears normal, oropharynx moist, no oral exudates, nose normal. [] Eyes: EOMI, conjunctiva normal, no discharge. [] Neck: Normal range of motion, supple, Cardiovascular:Heart rate regular rhythm, no murmur [] Lungs & Thorax: speaking in full sentences, no tachypnea or respiratory distress Skin: Warm, dry, no erythema, no rash. [] Back: No tenderness, Extremities: No tenderness, no cyanosis, no clubbing, ROM intact, no edema. [] Neurologic: Alert and oriented X 3, normal motor function, normal sensory function, no focal deficits noted. [] Psychologic: Affect normal, judgement normal, mood normal. [] EKG: EKG: [] Radiology/Procedures: Radiology/Procedures: IMAGING REPORT Signed PATIENT: ALEKSANDR SANCHEZ ACCOUNT: [id number] : 1975 LOCATION: ER AGE: 45 SEX: F EXAM STATUS: REG ER ORD. PHYSICIAN: ERICA GARLAND DO REASON: fever PROCEDURE: PORTABLE CHEST 1V EXAMINATION: PORTABLE CHEST 1V CLINICAL HISTORY: Fever EXAM DATE/TIME: 05/27/2020 3:32 PM COMPARISON: 05/15/2019 FINDINGS: Lines, Tubes, and Devices: None. Cardiomediastinal Silhouette: Normal heart size. Aortic atherosclerotic calcification. Lungs and Pleura: Minimal left basilar patchy opacities, likely subsegmental atelectasis. No evidence of focal airspace consolidation or pleural effusion. Pulmonary vasculature unremarkable. Bones and Soft Tissues: No acute osseous abnormality. IMPRESSION: Minimal patchy left basilar airspace disease, likely subsegmental atelectasis. Electronically signed by: Lele Galdamez DO (05/27/2020 3:58 PM) [id number] DICTATED AND SIGNED BY: LELE GALDAMEZ DO DATE: 05/27/20 1558 CC: ERICA GARLAND DO; ALISON MACHADO DO ~ Course & Med Decision Making: Course & Med Decision Making Pertinent Labs and Imaging studies reviewed. (See chart for details) COVID-19 CRITERIA: The patient was evaluated during the global COVID-19 pandemic, and that diagnosis was suspected/considered upon their initial presentation. Their evaluation, treatment and testing was consistent with current guidelines for patients who present with complaints or symptoms that may be related to COVID-19. Concern for viral syndrome/uri in very well appearing female, requiring no oxygen. Encouraged urgent outpatient follow-up with PMD. Life-threatening processes were considered but are low suspicion at this time, given history and physical exam. Pt was educated on all prescription medications and adverse effects. All patient's questions were answered and pt was stable at time of discharge. Differential includes surgical abdomen (appendicitis, cholecystitis, diverticulitis, inflammatory bowel disease, abscess, perforation), meningitis, encephalitis, Chadwick's angina, necrotizing fasciitis, endocarditis, life- threatening rash, viral syndrome, gynecologic and urologic emergencies (endometritis, ovarian/testicular torsion, TOA, obstructive nephropathy, prosta titis), head and neck abscess, sepsis or shock, or respiratory failure. I spoken with the patient and her caregivers. I explained the patient's condition, diagnoses and treatment plan based on the information available to me at this time. I have answered the patient and her caregiver's questions and addressed any concerns. The patient and her caregivers have a good understandin g of patient's diagnosis, condition and treatment plan as can be expected at this point. Vital signs have been stable. Patient's condition is stable and appropriate for discharge from the emergency department. Patient will pursue further outpatient evaluation with primary care physician or other designated or consulting physician as outlined in the discharge instructions. The patient and/or caregivers are agreeable to this plan of care and follow-up instructions have been explained in detail. The patient and/or caregivers have received these instructions in written form and have expressed an understanding of the discharge instructions. The patient and/or caregivers are aware that any significant change of condition or worsening of symptoms should prompt immediate return to this or the closest emergency department or call to 911. Jitendra Disclaimer: Jitendar Disclaimer: This electronic medical record was generated, in whole or in part, using a voice recognition dictation system. Departure Departure: Impression: Primary Impression: URI (upper respiratory infection) Additional Impression: Suspected COVID-19 virus infection Disposition: 01 HOME/RESIDENCE PRIOR TO ADM Condition: STABLE Referrals: ALISON MACHADO DO (PCP) Patient Instructions: Fever of Unknown Origin Additional Instructions: cYou have been tested for or diagnosed with COVID-19. It is an infection caused by a new type of coronavirus. COVID-19 will cause cold-like or mild flu symptoms in most. It can cause more severe symptoms like problems breathing in some. There is no treatment for COVID-19. The body will clear the infection over time. Self-care will help to ease discomfort. Steps to Take: Self-Care Rest as needed. Healthy habits may help you feel better. Steps include: Choose healthy foods including fruits and vegetables. Drink water throughout the day. Get plenty of sleep each night. If you smoke, try to quit. It may ease breathing. Avoid alcohol. Keep Others Healthy The virus can spread to others. Droplets are released every time you sneeze or cough. The droplets can get into the mouth, nose, or eyes of people near you and lead to infection. To lower the chances of spreading COVID-19 to others: Stay at home until your doctor has said it is safe to leave. If you tested positive this will mean staying isolated until both of the following are true: At least 7 days have passed since the start of illness. You are free of fever for at least 72 hours without the use of medicine. During this time: - Avoid public areas, events, or transportation. Do not return to work or school until your doctor has said it is safe to do so. - Call ahead if you need to go to a medical center. Let them know you may have COVID-19. It will help them guide you where to go. They may also ask you to wear a facemask when you come to the office. - If you call for emergency medical services, let them know you may have COVID- 19. While at home: - Try to avoid close contact with others. Stay about 6 feet away. - If possible, spend most of your time in a separate room from others. - Use a face mask if you will be in close contact with others such as sharing a room or vehicle. - Have someone wipe down common surfaces in the home. Use household agronomy advisor every day on areas like doorknobs, counters, or sinks. - Cough or sneeze into a tissue. Throw the tissue away right after use. If a tissue is not available, cough or sneeze into your elbow. - Wash your hands often. Wash them after sneezing or coughing. Use soap and water and wash for at least 20 seconds. Alcohol based hand carbonating stone cleaner can be used if soap and water is not available. - Do not prepare food for others. Avoid sharing personal items like forks, spoons, or toothbrushes. - Avoid close contact with pets while you are sick. There is no evidence of the virus passing to pets. This is a safety step until more is known about this virus. Isolation can be frustrating. Social interaction can help. Keep in touch with friends and family through phone and tech options. You can still interact with others in your home, just keep a safe distance of about 6 feet. Follow-up: Your doctors office will check in with you to see if there are any changes in your health. You may be asked to keep track of symptoms to share with them. They will also let you know when you are clear to be in public again. Problems to Look Out For: Contact your doctor if your recovery is not going as you expect. Get emergency care if you have problems such as: - Trouble breathing - Nonstop chest pain or pressure - Changes in awareness, confusion, or problems waking - Lips or face have bluish color - Worsening of symptoms If you think you have an emergency, call for emergency medical services right away. As taken from [facility] Patient/Caregiver given discharge instructions and they have confirmed that they understand the instructions. Patient ambulatory with steady gait. Justification of Admission: Justification of Admission: Justification of Admission Dx: N/A ERICA GARLAND DO May 27, 2020 15:42
[2020-05-27 15:57] VITALS: BP 105/64
--- NOTE | 2020-05-27 16:01 | RAD ---
EXAMINATION: PORTABLE CHEST 1V CLINICAL HISTORY: Fever EXAM DATE/TIME: 05/27/2020 3:32 PM COMPARISON: 05/15/2019 FINDINGS: Lines, Tubes, and Devices: None. Cardiomediastinal Silhouette: Normal heart size. Aortic atherosclerotic calcification. Lungs and Pleura: Minimal left basilar patchy opacities, likely subsegmental atelectasis. No evidence of focal airspace consolidation or pleural effusion. Pulmonary vasculature unremarkable. Bones and Soft Tissues: No acute osseous abnormality. IMPRESSION: Minimal patchy left basilar airspace disease, likely subsegmental atelectasis. Electronically signed by: Lele Olivares DO (05/27/2020 3:58 PM) [id number]
[2020-05-27 16:10] LABS: INFLUENZA A PATIENT NEGATIVE (NEGATIVE); INFLUENZA B PATIENT NEGATIVE (NEGATIVE)
[2020-05-27 16:19] LABS: BILIRUBIN,URINE NEG (NEG); CLARITY,URINE CLEAR; COLOR,URINE STRAW; GLUCOSE,URINE NEG (NEG); NITRITE,URINE NEG (NEG); UROBILINOGEN,URINE 0.2 mg/dL (0.2 mg/dL)
[2020-05-27 16:20] LABS: BACTERIA,URINE 0 /HPF (0-FEW); RBC,URINE 0 /HPF (0-2); WBC,URINE OCC /HPF (0-4)
== END 2020-05-27 16:40 | disposition home or self-care (01) ==
LOC: ER 15:05
DX: J06.9 Acute upper respiratory infection, unspecified (principal); F41.9 Anxiety disorder, unspecified; F17.200 Nicotine dependence, unspecified, uncomplicated; Z20.828 Contact with and (suspected) exposure to other viral communicable diseases; Z87.440 Personal history of urinary (tract) infections; Z88.1 Allergy status to other antibiotic agents; Z88.8 Allergy status to other drugs, medicaments and biological substances
CPT/HCPCS: 71045; 81001; 87077; 87086; 87804; 99284

== ENCOUNTER 2021-01-30 09:54 | Emergency (ER) | payer BC, OTHER ==
[~2021-01-30] VITALS: Ht 177.8 cm; Wt 62.1 kg
[~2021-01-30 09:54] MED LIST changes: -MECL12.573 PO; +MECL12.582 PO
[2021-01-30 10:05] VITALS: BP 122/85
[2021-01-30] MEDS ORDERED: VALA10008 PO (10:17)
--- NOTE | 2021-01-30 10:17 | PHYS DOC ---
Past History Past Medical History: Anxiety, Arrhythmia, Cancer, Diverticulitis, Ovarian Cyst, Pancreatitis, UTI, Other Additional Past Medical Histor: crohns, gastroparesis,hypopotassium;PSVT, SVT, MRSA, endometriosis Past Surgical History: Cholecystectomy, Colectomy, Other Additional Past Surgical Histo: mult bx on colon for crohns, diverticulitis, bx for endometriosis Smoking: Less than 1pk/day Alcohol Use: Occasionally Drug Use: None General Adult EDM: Chief Complaint: SKIN PROBLEM HPI: HPI: 45-year-old female presents with concern for shingles. She had a small red bump on the right lateral neck last night. This morning it was a little bit bigger and look like he might have a vesicle on it. She also is having a burning sensation and electric type feeling rating up to her shoulder. This is the exact same feeling she has had in the past when she got shingles. She has had them twice on the left side of her abdominal wall. She does not want this to get that out of control so she came to the emergency room. She could not get into her primary physician for 2 weeks. Review of Systems: Review of Systems: Constitutional: Denies fever or chills Eyes: Denies change in visual acuity HENT: Denies nasal congestion or sore throat Respiratory: Denies cough or shortness of breath Cardiovascular: Denies chest pain or edema GI: Denies abdominal pain, nausea, vomiting, bloody stools or diarrhea : Denies dysuria Musculoskeletal: Denies back pain or joint pain Integument: Rash right side of neck Neurologic: Denies headache, focal weakness or sensory changes Endocrine: Denies polyuria or polydipsia Lymphatic: Denies swollen glands Psychiatric: Denies depression or anxiety Allergies: Allergies: Allergies Coded Allergies Type Severity Reaction Last Updated Verified citalopram Allergy Unknown 03/25/19 Yes nitroglycerin Allergy Unknown 01/30/21 Yes Physical Exam: PE: Constitutional: Well developed, well nourished, no acute distress, non-toxic appearance. [] HENT: Normocephalic, atraumatic, bilateral external ears normal, oropharynx moist, no oral exudates, nose normal. [] Eyes: PERRLA, EOMI, conjunctiva normal, no discharge. [] Neck: Normal range of motion, no tenderness, supple, no stridor. [] Cardiovascular:Heart rate regular rhythm, no murmur [] Lungs & Thorax: Bilateral breath sounds clear to auscultation [] Abdomen: Bowel sounds normal, soft, no tenderness, no masses, no pulsatile masses. [] Skin: Single erythematous papule with a vesicular center [] Back: No tenderness, no CVA tenderness. [] Extremities: No tenderness, no cyanosis, no clubbing, ROM intact, no edema. [] Neurologic: Alert and oriented X 3, normal motor function, normal sensory function, no focal deficits noted. [] Psychologic: Affect normal, judgement normal, mood normal. [] Current Patient Data: Vital Signs: Vital Signs Date Time Temp Pulse Resp B/P (MAP) Pulse Ox O2 Delivery O2 Flow Rate FiO2 01/30/21 10:05 98.2 96 18 122/85 (97) 99 Room Air EKG: EKG: [] Radiology/Procedures: Radiology/Procedures: [] Heart Score: C/O Chest Pain: N/A Risk Factors: Risk Factors: DM, Current or recent (<one month) smoker, HTN, HLP, family history of CAD, obesity. Risk Scores: Score 0 - 3: 2.5% MACE over next 6 weeks - Discharge Home Score 4 - 6: 20.3% MACE over next 6 weeks - Admit for Clinical Observation Score 7 - 10: 72.7% MACE over next 6 weeks - Early Invasive Strategies Course & Med Decision Making: Course & Med Decision Making Pertinent Labs and Imaging studies reviewed. (See chart for details) This lesion certainly could be consistent with shingles. Based on the symptoms she described this is my primary suspicion. I will treat her with Valtrex for 7 days. She is stable for discharge at this time. [] Jitendra Disclaimer: Jitendra Disclaimer: This electronic medical record was generated, in whole or in part, using a voice recognition dictation system. Departure Departure: Impression: Primary Impression: Shingles Qualified Codes: B02.9 - Zoster without complications Disposition: HOME / SELF CARE / HOMELESS Condition: STABLE Referrals: ALISON MACHADO DO (PCP) Patient Instructions: Shingles, [id number] Scripts Valacyclovir Hcl (VALACYCLOVIR) 1,000 Mg Tablet 1 TAB PO TID for shingles, #21 TAB Prov: TIM VARGAS DO 01/30/21 TIM VARGAS DO January 30, 2021 10:17
== END 2021-01-30 10:22 | disposition home or self-care (01) ==
LOC: ER 09:54
DX: B02.9 Zoster without complications (principal); F41.9 Anxiety disorder, unspecified; F17.200 Nicotine dependence, unspecified, uncomplicated; Z87.440 Personal history of urinary (tract) infections; Z90.49 Acquired absence of other specified parts of digestive tract; Z88.8 Allergy status to other drugs, medicaments and biological substances
CPT/HCPCS: 99283

== ENCOUNTER 2021-05-05 05:32 | Emergency (ER) | payer SELFPAY ==
[~2021-05-05] VITALS: Ht 177.8 cm; Wt 63.0 kg
[~2021-05-05 05:32] MED LIST changes: -OMEP40CA45 PO; +OMEP40CA7 PO; +VALA10008 PO
--- NOTE | 2021-05-05 05:55 | PHYS DOC ---
Past History Additional Past Medical Histor: PSVT, gastroparesis,diverticulosis, crohns (TIM VARGAS DO) Past Surgical History: Cholecystectomy, Hysterectomy, Oophorectomy (TIM VARGAS DO) General Adult EDM: Chief Complaint: ABDOMINAL PAIN HPI: HPI: 46-year-old female presents with left lower quadrant abdominal pain. The patient states that she had an episode of abdominal pain a couple weeks ago that was similar to this though less severe. It went away on its own. She started having left lower quadrant pain yesterday and it has gotten worse overnight. She woke up early this morning and it was very painful to even roll over or try to stand up. The patient states the pain is a moderate to severe cramping. It comes and goes in waves. This is worse than it ever her before. She has a history of hysterectomy but they left one ovary. She is also had her gallbladder removed. She has had diverticulitis in the past and gastroparesis. She denies fever or chills. She has had some nausea and vomiting but denies diarrhea. (TIM VARGAS DO) Review of Systems: Review of Systems: Constitutional: Denies fever or chills Eyes: Denies change in visual acuity HENT: Denies nasal congestion or sore throat Respiratory: Denies cough or shortness of breath Cardiovascular: Denies chest pain or edema GI: Left lower quadrant abdominal pain, nausea, vomiting. Denies bloody stools or diarrhea : Denies dysuria Musculoskeletal: Denies back pain or joint pain Integument: Denies rash Neurologic: Denies headache, focal weakness or sensory changes Endocrine: Denies polyuria or polydipsia Lymphatic: Denies swollen glands Psychiatric: Denies depression or anxiety (TIM VARGAS DO) Current Medications: Current Meds: Current Medications Medications (Trade) Dose Ordered Sig/Derek Start Time Stop Time Status Last Admin Dose Admin Sodium Chloride 1,000 ml @ 1,000 mls/hr 1X ONCE 05/05/21 06:00 05/05/21 06:59 (TIM VARGAS DO) Allergies: Allergies: Allergies Coded Allergies Type Severity Reaction Last Updated Verified nitroglycerin Allergy Unknown 05/05/21 Yes (TIM VARGAS DO) Physical Exam: PE: Constitutional: Well developed, well nourished, mild acute distress, non-toxic appearance. [] HENT: Normocephalic, atraumatic, bilateral external ears normal, oropharynx moist, no oral exudates, nose normal. [] Eyes: PERRLA, EOMI, conjunctiva normal, no discharge. [] Neck: Normal range of motion, no tenderness, supple, no stridor. [] Cardiovascular: Heart rate regular rhythm, no murmur [] Lungs & Thorax: Bilateral breath sounds clear to auscultation [] Abdomen: Bowel sounds normal, soft, left lower quadrant tenderness, no masses, no pulsatile masses. [] Skin: Warm, dry, no erythema, no rash. [] Back: No tenderness, no CVA tenderness. [] Extremities: No tenderness, no cyanosis, no clubbing, ROM intact, no edema. [] Neurologic: Alert and oriented X 3, normal motor function, normal sensory function, no focal deficits noted. [] Psychologic: Affect normal, judgement normal, mood normal. [] (TIM VARGAS DO) Current Patient Data: Vital Signs: Vital Signs Date Time Temp Pulse Resp B/P (MAP) Pulse Ox O2 Delivery O2 Flow Rate FiO2 05/05/21 05:42 98.6 95 18 107/63 97 Room Air (TIM VARGAS DO) Labs: Laboratory Tests Test 05/05/21 05:42 05/05/21 06:00 Urine Collection Type Unknown Urine Color Yellow Urine Clarity Clear Urine pH 7.0 Urine Specific Bernard 1.010 Urine Protein Neg Urine Glucose (UA) Neg mg/dL Urine Ketones (Stick) Neg mg/dL Urine Blood Small Urine Nitrite Neg Urine Bilirubin Neg Urine Urobilinogen Dipstick 0.2 mg/dL Urine Leukocyte Esterase Neg Urine RBC Occ /HPF Urine WBC 1-4 /HPF Urine Squamous Epithelial Cells Few /LPF Urine Bacteria 0 /HPF White Blood Count 12.1 x10^3/uL Red Blood Count 4.18 x10^6/uL Hemoglobin 11.5 g/dL Hematocrit 34.7 % Mean Corpuscular Volume 83 fL Mean Corpuscular Hemoglobin 28 pg Mean Corpuscular Hemoglobin Concent 33 g/dL Red Cell Distribution Width 14.7 % Platelet Count 280 x10^3/uL Neutrophils (%) (Auto) 75 % Lymphocytes (%) (Auto) 15 % Monocytes (%) (Auto) 9 % Eosinophils (%) (Auto) 2 % Basophils (%) (Auto) 1 % Neutrophils # (Auto) 9.1 x10^3uL Lymphocytes # (Auto) 1.8 x10^3/uL Monocytes # (Auto) 1.0 x10^3/uL Eosinophils # (Auto) 0.2 x10^3/uL Basophils # (Auto) 0.1 x10^3/uL Sodium Level 137 mmol/L Potassium Level 3.7 mmol/L Chloride Level 105 mmol/L Carbon Dioxide Level 26 mmol/L Anion Gap 6 Blood Urea Nitrogen 6 mg/dL Creatinine 0.7 mg/dL Estimated GFR (Cockcroft-Gault) 90.9 BUN/Creatinine Ratio 9 Glucose Level 87 mg/dL Calcium Level 8.3 mg/dL Total Bilirubin 0.4 mg/dL Aspartate Amino Transf (AST/SGOT) 12 U/L Alanine Aminotransferase (ALT/SGPT) 17 U/L Alkaline Phosphatase 90 U/L Total Protein 6.9 g/dL Albumin 3.3 g/dL Albumin/Globulin Ratio 0.9 Current Medications Medications (Trade) Dose Ordered Sig/Derek Route PRN Reason Start Time Stop Time Status Last Admin Dose Admin Sodium Chloride 1,000 ml @ 1,000 mls/hr 1X ONCE IV 05/05/21 06:00 05/05/21 06:59 DC 05/05/21 06:03 Morphine Sulfate (Morphine 4mg Syringe) 4 mg 1X ONCE IV 05/05/21 06:30 05/05/21 06:31 DC 05/05/21 06:43 Ondansetron HCl (Zofran) 4 mg 1X ONCE IVP 05/05/21 06:30 05/05/21 06:31 DC 05/05/21 06:03 Iohexol (Omnipaque 300 Mg/ml) 75 ml 1X ONCE IV 05/05/21 06:30 05/05/21 06:31 DC 05/05/21 06:09 Info (Do NOT chart on this entry -- for MONITORING) 1 each PRN DAILY PRN MC SEE COMMENTS 05/05/21 06:00 05/07/21 05:59 Metronidazole (Flagyl) 500 mg 1X ONCE PO 05/05/21 07:15 05/05/21 07:17 DC Ciprofloxacin (Cipro) 500 mg 1X ONCE PO 05/05/21 07:15 05/05/21 07:17 DC Vital Signs: Vital Signs Date Time Temp Pulse Resp B/P (MAP) Pulse Ox O2 Delivery O2 Flow Rate FiO2 05/05/21 05:42 98.6 95 18 107/63 97 Room Air Vital Signs Date Time Temp Pulse Resp B/P (MAP) Pulse Ox O2 Delivery O2 Flow Rate FiO2 05/05/21 07:19 83 18 110/72 (85) 99 Room Air 05/05/21 05:42 98.6 (RODRIGO CARCAMO DO) EKG: EKG: [] (TIM VARGAS DO) Radiology/Procedures: Radiology/Procedures: [] (TIM VARGAS DO) Radiology/Procedures: EXAMINATION: CT abdomen and pelvis with IV contrast. INDICATION:46 years, Female, left lower quadrant abdominal pain. Partial hysterectomy TECHNIQUE: Axial CT images of the abdomen and pelvis were obtained. Coronal and sagittal reformatted performed. COMPARISON: None. Exposure: One or more of the following individualized dose reduction techniques were utilized for this examination: 1. Automated exposure control 2. Adjustment of the mA and/or kV according to patient size 3. Use of iterative reconstruction technique. FINDINGS: LOWER CHEST: Unremarkable ABDOMEN/PELVIS: Colonic diverticulosis. Focal wall thickening of the proximal sigmoid colon with perisigmoid fat stranding. No extraluminal gas to suggest perforation. No abscess identified. No bowel dilatation. Appendix is not seen with certainty. Normal morphology and size of the liver with homogeneous enhancement. Simple appearing cyst in the left hepatic lobe measures 1.0 cm. Subcentimeter hypode nsity in the left hepatic lobe anteriorly, too small to characterize. Focal fat infiltration adjacent to falciform ligament. Cholecystectomy. No biliary ductal dilation. Unremarkable spleen and pancreas. No adrenal nodule. No hydronephrosis or nephrolithiasis in either kidney. Bilateral renal cortical lobulation. Normal caliber abdominal aorta. Mesenteric arteries and portal vein are patent. No lymphadenopathy in the abdomen or pelvis by size criteria. Unremarkable bladder. Hysterectomy changes. MUSCULOSKELETAL: No acute osseous process. Limbus vertebra at L4. IMPRESSION: Acute uncomplicated sigmoid diverticulitis. Electronically signed by: Angela Berger MD (05/05/2021 7:05 AM) [facility] (RODRIGO CARCAMO DO) Heart Score: C/O Chest Pain: N/A Risk Factors: Risk Factors: DM, Current or recent (<one month) smoker, HTN, HLP, family history of CAD, obesity. Risk Scores: Score 0 - 3: 2.5% MACE over next 6 weeks - Discharge Home Score 4 - 6: 20.3% MACE over next 6 weeks - Admit for Clinical Observation Score 7 - 10: 72.7% MACE over next 6 weeks - Early Invasive Strategies (TIM VARGAS DO) C/O Chest Pain: No (RODRIGO CARCAMO DO) Course & Med Decision Making: Course & Med Decision Making Pertinent Labs and Imaging studies reviewed. (See chart for details) The patient's work-up is pending. I am signing the patient out to Dr. Carcaom at 0600. [] (TIM VARGAS DO) Course & Med Decision Making ABCs unremarkable. I disclosed entirety of ER findings and discussed most likely diagnosis of acute uncomplicated diverticulitis. Other diagnoses were discussed with patient such as other intra-abdominal pathology and pelvic pathology such as ovarian torsion but all deemed less likely causes of patient's presentation. Plan of care discussed at length with need for close outpatient follow-up to review today's ER visit stressed. Strict return precautions were also discussed at length with good understanding by patient. Patient voiced understanding and agreement with the plan. Patient knows to come back for repeat evaluation if concerning signs or symptoms present prior to outpatient follow-up. Hemodynamically stable, ambulatory and well-appearing at time of disposition. (RODRIGO CARCAMO DO) [place] Disclaimer: Jitendra Disclaimer: This electronic medical record was generated, in whole or in part, using a voice recognition dictation system. (TIM VARGAS DO) Departure Departure: Impression: Primary Impression: Acute diverticulitis Disposition: HOME / SELF CARE / HOMELESS Condition: STABLE Referrals: ALISON MACHADO DO (PCP) Patient Instructions: Diverticulitis Additional Instructions: As discussed prior to your departure, you were diagnosed with acute uncomplicated diverticulitis which should respond to prescribed antibiotics. You are advised not to drink while taking said antibiotics. It's prudent that you take these as prescribed to completion. Please contact your primary care physician to review need for close outpatient follow-up regarding today's ER visit. If any concerning signs or symptoms present prior to outpatient follow- up please do not hesitate to contact your primary care physician and/or come back for repeat evaluation. It was a pleasure to take care of you and I wish you the best going forward Scripts Tramadol Hcl (TRAMADOL HCL) 50 Mg Tablet 50 MG PO PRN Q6HRS PRN for PAIN, #10 TAB Prov: RODRIGO CARCAMO DO 05/05/21 Promethazine Hcl (PROMETHAZINE HCL) 12.5 Mg Tablet 1 TAB PO Q6-8HRS for NAUSEA for 5 Days, #20 TAB 0 Refills Prov: RODRIGO CARCAMO DO 05/05/21 Ciprofloxacin Hcl (CIPROFLOXACIN HCL) 500 Mg Tablet 1 TAB PO BID for DIVERTICULITIS, #20 TAB Prov: RODRIGO CARCAMO DO 05/05/21 Metronidazole (METRONIDAZOLE) 500 Mg Tablet 1 TAB PO TID for DIVERTICULITIS for 10 Days, #30 TAB 0 Refills Prov: RODRIGO CARCAMO DO 05/05/21 TIM VARGAS DO May 05, 2021 05:55 RODRIGO CARCAMO DO May 05, 2021 07:42
[2021-05-05] MEDS ORDERED: CONTRAST GIVEN. MC PRN (06:00)
[2021-05-05] MEDS ORDERED: IV NORMAL SALINE 1,000ML 1,000 ML IV ONE (06:00)
[2021-05-05 06:24] LABS: BILIRUBIN,URINE NEG (NEG); CLARITY,URINE CLEAR; COLOR,URINE YELLOW; GLUCOSE,URINE NEG (NEG); NITRITE,URINE NEG (NEG); UROBILINOGEN,URINE 0.2 mg/dL (0.2 mg/dL)
[2021-05-05 06:26] LABS: BACTERIA,URINE 0 /HPF (0-FEW); RBC,URINE OCC /HPF (0-2); SQUAMOUS EPITHELIAL CELL,UR FEW /LPF
[2021-05-05 06:26] LABS: CALCIUM 8.3 mg/dL (8.5-10.1); CREATININE 0.7 mg/dL (0.6-1.0); GFR 90.9; POTASSIUM 3.7 mmol/L (3.5-5.1)
[2021-05-05] MEDS ORDERED: ONDANSETRON PF 4 MG/2 ML VIAL. IVP ONE (06:30)
[2021-05-05] MEDS ORDERED: IOHEXOL 300 MG/ML 75 ML VIAL. IV ONE (06:30)
[2021-05-05 06:31] LABS: BASO # 0.1 x10^3/uL (0.0-0.2); BASO % 1 % (0-3); EOS # 0.2 x10^3/uL (0.0-0.7); EOS % 2 % (0-3); HEMATOCRIT 34.7 % (36.0-47.0); HEMOGLOBIN 11.5 g/dL (12.0-15.5); LYMPH # 1.8 x10^3/uL (1.0-4.8); LYMPH % 15 % (24-48); MEAN CORPUSCULAR HEMOGLOBIN 28 pg (25-35); MEAN CORPUSCULAR HGB CONC 33 g/dL (31-37); MEAN CORPUSCULAR VOLUME 83 fL (79-100); MONO % 9 % (0-9); NEUT # 9.1 x10^3uL (1.8-7.7); NEUT % 75 % (31-73); PLATELET COUNT 280 x10^3/uL (140-400); RED BLOOD COUNT 4.18 x10^6/uL (3.50-5.40); RED CELL DISTRIBUTION WIDTH 14.7 % (11.5-14.5); WHITE BLOOD COUNT 12.1 x10^3/uL (4.0-11.0)
[2021-05-05 06:32] LABS: ALBUMIN 3.3 g/dL (3.4-5.0); ALBUMIN/GLOBULIN RATIO 0.9 (1.0-1.7); TOTAL BILIRUBIN 0.4 mg/dL (0.2-1.0); TOTAL PROTEIN 6.9 g/dL (6.4-8.2)
[2021-05-05] MEDS: MORPHINE SULFATE 4 MG/ML DISP.SYRIN. IV ONE ×2 (06:37→06:43)
--- NOTE | 2021-05-05 07:08 | RAD ---
EXAMINATION: CT abdomen and pelvis with IV contrast. INDICATION:46 years, Female, left lower quadrant abdominal pain. Partial hysterectomy TECHNIQUE: Axial CT images of the abdomen and pelvis were obtained. Coronal and sagittal reformatted performed. COMPARISON: None. Exposure: One or more of the following individualized dose reduction techniques were utilized for thi s examination: 1. Automated exposure control 2. Adjustment of the mA and/or kV according to patient size 3. Use of iterative reconstruction technique. FINDINGS: LOWER CHEST: Unremarkable ABDOMEN/PELVIS: Colonic diverticulosis. Focal wall thickening of the proximal sigmoid colon with perisigmoid fat stra nding. No extraluminal gas to suggest perforation. No abscess identified. No bowel dilatation. Append ix is not seen with certainty. Normal morphology and size of the liver with homogeneous enhancement. Simple appearing cyst in the le ft hepatic lobe measures 1.0 cm. Subcentimeter hypodensity in the left hepatic lobe anteriorly, too s mall to characterize. Focal fat infiltration adjacent to falciform ligament. Cholecystectomy. No bili juliana ductal dilation. Unremarkable spleen and pancreas. No adrenal nodule. No hydronephrosis or nephro lithiasis in either kidney. Bilateral renal cortical lobulation. Normal caliber abdominal aorta. Mesenteric arteries and portal vein are patent. No lymphadenopathy in the abdomen or pelvis by size criteria. Unremarkable bladder. Hysterectomy changes. MUSCULOSKELETAL: No acute osseous process. Limbus vertebra at L4. IMPRESSION: Acute uncomplicated sigmoid diverticulitis. Electronically signed by: Angela Berger MD (05/05/2021 7:05 AM) [facility]
[2021-05-05] MEDS ORDERED: CIPROFLOXACIN HCL 500 MG TABLET PO ONE (07:15)
[2021-05-05] MEDS ORDERED: metroNIDAZOLE 500 MG TABLET PO ONE (07:15)
[2021-05-05] MEDS ORDERED: MORPHINE SULFATE 4 MG/ML DISP.SYRIN. IV ONE (07:30)
[2021-05-05] MEDS ORDERED: TRAM50TA PO (07:40)
[2021-05-05] MEDS ORDERED: PROM12.58 PO (07:40)
[2021-05-05] MEDS ORDERED: CIPR500T2 PO (07:40)
[2021-05-05] MEDS ORDERED: METR-34 PO (07:40)
[2021-05-05 08:24] VITALS: BP 102/61
== END 2021-05-05 08:25 | disposition home or self-care (01) ==
LOC: MERGE 05:32 → ER 05:32
DX: K57.92 Diverticulitis of intestine, part unspecified, without perforation or abscess without bleeding (principal); Z90.49 Acquired absence of other specified parts of digestive tract; Z90.710 Acquired absence of both cervix and uterus
CPT/HCPCS: 36415; 74177; 80053; 81001; 85025; 96361; 96374; 96375; 99285; J2270; J2405; J3010; J7030; Q9967

== ENCOUNTER 2021-06-19 09:24 | Emergency (ER) | payer SELFPAY ==
[~2021-06-19] VITALS: Ht 177.8 cm; Wt 64.9 kg
[~2021-06-19 09:24] MED LIST changes: +CIPR500T2 PO; +METR-34 PO; +PROM12.58 PO; -SCOP1PAT11 TP; +SCOP1PAT12 TP; +TRAM50TA PO
--- NOTE | 2021-06-19 09:48 | PHYS DOC ---
Past History Past Medical History: Anxiety, Arrhythmia, Cancer, Diverticulitis, Ovarian Cyst, Pancreatitis, UTI, Other Additional Past Medical Histor: PSVT, gastroparesis,diverticulosis, crohns Past Surgical History: Cholecystectomy, Hysterectomy, Oophorectomy Additional Past Surgical Histo: mult bx on colon for crohns, diverticulitis, bx for endometriosis Smoking: Less than 1pk/day Alcohol Use: Occasionally Drug Use: None General Adult EDM: Chief Complaint: Palpitations HPI: HPI: Patient is a 46 year old female with history of SVT on diltiazem who presents with chest tightness. States that she went into SVT this morning, and had a heart rate near 200 per her smart watch. She had chest tightness associated with it. Her heart rate has since returned to sinus rhythm with a normal rate, but her chest tightness has persisted. She denies any preceding illness such as fever/chills, cough, shortness of breath, congestion. No preceding chest pain. Has had chest pain like this with SVT episodes in the past, but it has been sev eral years since she has had 1 of this intensity. While she is in SVT has shortness of breath, but this has stopped now that her heart rate is improved. She has an appointment with a radar technician in July. Not currently on any anticoagulation or aspirin. Review of Systems: Review of Systems: Constitutional: Denies fever or chills Eyes: Denies change in visual acuity HENT: Denies nasal congestion or sore throat Respiratory: Denies cough or shortness of breath Cardiovascular: Reports chest tightness and palpitations/heart racing GI: Denies abdominal pain, nausea, vomiting, bloody stools or diarrhea : Denies dysuria Musculoskeletal: Denies back pain or joint pain Integument: Denies rash Neurologic: Denies headache, focal weakness or sensory changes Endocrine: Denies polyuria or polydipsia Lymphatic: Denies swollen glands Psychiatric: Denies depression or anxiety Allergies: Allergies: Allergies Coded Allergies Type Severity Reaction Last Updated Verified citalopram Allergy Unknown 03/25/19 Yes morphine Allergy Unknown 06/19/21 Yes nitroglycerin Allergy Unknown 01/30/21 Yes Physical Exam: PE: Constitutional: Well developed, well nourished, no acute distress, non-toxic appearance. [] HENT: Normocephalic, atraumatic, Eyes: conjunctiva normal, no discharge. [] Neck: Normal range of motion, no tenderness, supple, no stridor. [] Cardiovascular:Heart rate regular rhythm, no murmur [] Lungs & Thorax: Bilateral breath sounds clear to auscultation [] Abdomen: Bowel sounds normal, soft, no tenderness, no masses, no pulsatile masses. [] Skin: Warm, dry, no erythema, no rash. [] Extremities: No tenderness, no cyanosis, no clubbing, ROM intact, no edema. [] Neurologic: Alert and oriented X 3, normal motor function, normal sensory function, no focal deficits noted. [] Psychologic: Affect normal, judgement normal, mood normal. [] EKG: EKG: [] Sinus rhythm. Rate 77. Normal axis. QTc 450. Other intervals normal. No Q waves, ST elevation, ST depression, or T wave inversions. Radiology/Procedures: Radiology/Procedures: [] Impressions: [place] [address] IMAGING REPORT Signed PATIENT: ALEKSANDR SANCHEZ ACCOUNT: [id number] : 1975 LOCATION: ER AGE: 46 SEX: F EXAM STATUS: REG ER ORD. PHYSICIAN: ERON DERAS MD REASON: chest tightness PROCEDURE: CHEST AP ONLY EXAM: AP View of the chest DATE: 06/19/2021 9:42 AM INDICATION: Reason: chest tightness / Spl. Instructions: / History: COMPARISON: No Prior FINDINGS: The heart is not enlarged. Mediastinal and hilar contours are normal. Patchy opacities peripheral right lung base likely atelectasis or developing consolidation. No pleural effusion or pneumothorax. IMPRESSION: 1. Patchy opacities peripheral right lung base likely atelectasis or developing consolidation. Imaging follow-up to resolution is recommended. Electronically signed by: Warren Fang MD (06/19/2021 10:18 AM) [id number] DICTATED AND SIGNED BY: WARREN FANG MD DATE: 06/19/21 1018 CC: ERON DERAS MD; ALISON MACHADO DO ~MTH0 0 Heart Score: C/O Chest Pain: Yes HEART Score for Chest Pain: HEART Score for Chest Pain Response (Comments) Value History Slighlty/Non-Suspicious 0 ECG Normal 0 Age < 45 0 Risk Factors 1 or 2 Risk Factors 1 Troponin < Normal Limit 0 Total 1 Risk Factors: Risk Factors: Smoker Risk Scores: Score 0 - 3: 2.5% MACE over next 6 weeks - Discharge Home Score 4 - 6: 20.3% MACE over next 6 weeks - Admit for Clinical Observation Score 7 - 10: 72.7% MACE over next 6 weeks - Early Invasive Strategies Course & Med Decision Making: Course & Med Decision Making Pertinent Labs and Imaging studies reviewed. (See chart for details) Patient 46-year-old female with history of SVT who had a recurrent episode of SVT this morning who presents with persistent chest tightness following spontaneous conversion to sinus rhythm. On arrival is afebrile, hemodynamically stable. EKG shows heart rate of 77, sinus with no ischemic changes. Only risk factor for ACS is smoking history. HEART Score = 1 prior to troponin. Given timing of pain starting at 9am considered serial troponins but the patient is not willing to stay for serial testing. She is willing to have a single troponin drawn. She has no signs/symptoms of DVT, has normal heart rate, BP, satting 99% on RA. She is currently PERC negative. Will not pursue PE work up. Will check cxr, electrolytes, cell counts to ensure no driving factors for SVT or chest pain. 0946 Mild anemia, likely non-contributory. Mild hypokalemia, 3.4, also likely non-contributory. Can be addressed with dietary changes. Glucose slightly low, will be given juice. Alert, oriented. Do not feel further work up/observation is indicated. Troponin is negative. As discussed above is not willing to stay for a delta troponin. CXR with patchy opacity. no infectious symptoms to suggest pneumonia. she has a hx of previously diagnosed atelectasis, given her smoking history this should likely have CT follow up. Discussed with patient and she would prefer to have this done outpatient. I have also ordered a COVID test. Will be discharged at this time with PCP and Cardiology follow up. 1027 Jitendra Disclaimer: Jitendra Disclaimer: This electronic medical record was generated, in whole or in part, using a voice recognition dictation system. Departure Departure: Impression: Primary Impression: Chest pain Additional Impressions: History of PSVT (paroxysmal supraventricular tachycardia) Right lower lobe consolidation Disposition: HOME / SELF CARE / HOMELESS Condition: STABLE Referrals: ALISON MACHADO DO (PCP) Schedule a follow up appointment. Please keep your cardiology follow up appointment. They may wish to change your diltiazem dose if you continue to have episodes of frequent SVT. Additional Instructions: Please follow-up with your PCP and your radar technician about your recurrent episodes of SVT. If these become more frequent they may wish to change her dosing of diltiazem, or consider other medications. Your potassium was very slightly low on your blood work. Please research potassium rich foods and add some of them to your diet. Your chest x-ray showed a hazy area in your right lung base. Given your smoking history, if this is the same area that you had atelectasis before, it may warrant further work-up with a CT scan of your chest to ensure that you do not have cancer of the lung. Please follow-up with your primary care doctor to determine if a CT scan will be needed in the near future. We are testing you for Covid. This will be available in 24-48 hours. Since you do not have any symptoms consistent with pneumonia, we will not treat you with antibiotics at this time, but if you do develop fever/chills, cough, shortness of breath the finding on the chest x-ray could be consistent with pneumonia. If these do occur please call your primary care office or return to the emergency department. ERON DERAS MD Jun 19, 2021 09:48
[2021-06-19 10:05] LABS: BASO # 0.1 x10^3/uL (0.0-0.2); BASO % 1 % (0-3); EOS # 0.2 x10^3/uL (0.0-0.7); EOS % 3 % (0-3); HEMATOCRIT 36.9 % (36.0-47.0); HEMOGLOBIN 11.9 g/dL (12.0-15.5); LYMPH # 2.1 x10^3/uL (1.0-4.8); LYMPH % 35 % (24-48); MEAN CORPUSCULAR HEMOGLOBIN 27 pg (25-35); MEAN CORPUSCULAR HGB CONC 32 g/dL (31-37); MEAN CORPUSCULAR VOLUME 85 fL (79-100); MONO # 0.4 x10^3/uL (0.0-1.1); MONO % 7 % (0-9); NEUT # 3.2 x10^3uL (1.8-7.7); NEUT % 54 % (31-73); PLATELET COUNT 204 x10^3/uL (140-400); RED BLOOD COUNT 4.37 x10^6/uL (3.50-5.40); RED CELL DISTRIBUTION WIDTH 15.5 % (11.5-14.5)
[2021-06-19 10:15] LABS: CALCIUM 8.4 mg/dL (8.5-10.1); CREATININE 0.5 mg/dL (0.6-1.0); MAGNESIUM 1.9 mg/dL (1.8-2.4); POTASSIUM 3.4 mmol/L (3.5-5.1)
--- NOTE | 2021-06-19 10:20 | RAD ---
EXAM: AP View of the chest DATE: 06/19/2021 9:42 AM INDICATION: Reason: chest tightness / Spl. Instructions: / History: COMPARISON: No Prior FINDINGS: The heart is not enlarged. Mediastinal and hilar contours are normal. Patchy opacities peripheral right lung base likely atelectasis or developing consolidation. No pleural effusion or pneumothorax. IMPRESSION: 1. Patchy opacities peripheral right lung base likely atelectasis or developing consolidation. Imagi ng follow-up to resolution is recommended. Electronically signed by: Warren Garcia MD (06/19/2021 10:18 AM) [id number]
[2021-06-19 10:30] VITALS: BP 129/77
--- NOTE | 2021-06-19 13:23 | EKG ---
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
== END 2021-06-19 10:51 | disposition home or self-care (01) ==
LOC: ER 09:24
DX: I47.1 Supraventricular tachycardia (principal); J18.1 Lobar pneumonia, unspecified organism; N83.209 Unspecified ovarian cyst, unspecified side; F17.210 Nicotine dependence, cigarettes, uncomplicated; Z90.49 Acquired absence of other specified parts of digestive tract; Z90.710 Acquired absence of both cervix and uterus; Z20.822 Contact with and (suspected) exposure to COVID-19
CPT/HCPCS: 36415; 71045; 80048; 83735; 84484; 85025; 93005; 99285; C9803; U0003

== ENCOUNTER 2021-07-24 08:31 | Emergency (ER) | payer OTHER ==
[~2021-07-24] VITALS: Ht 177.8 cm; Wt 67.0 kg
[2021-07-24] MEDS ORDERED: IV NORMAL SALINE 1,000ML 1,000 ML IV ONE (09:00)
[2021-07-24] MEDS ORDERED: ONDANSETRON PF 4 MG/2 ML VIAL. IVP ONE (09:00)
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
[2021-07-24] MEDS ORDERED: IOHEXOL 300 MG/ML 75 ML VIAL. IV ONE (09:15)
[2021-07-24 09:23] LABS: CREATININE 0.6 mg/dL (0.6-1.0); GFR 108.6; POTASSIUM 3.8 mmol/L (3.5-5.1)
[2021-07-24 09:24] LABS: BASO # 0.1 x10^3/uL (0.0-0.2); BASO % 1 % (0-3); EOS # 0.2 x10^3/uL (0.0-0.7); EOS % 2 % (0-3); HEMATOCRIT 36.7 % (36.0-47.0); HEMOGLOBIN 12.1 g/dL (12.0-15.5); LYMPH # 1.5 x10^3/uL (1.0-4.8); LYMPH % 24 % (24-48); MEAN CORPUSCULAR HEMOGLOBIN 28 pg (25-35); MEAN CORPUSCULAR HGB CONC 33 g/dL (31-37); MEAN CORPUSCULAR VOLUME 84 fL (79-100); MONO # 0.5 x10^3/uL (0.0-1.1); MONO % 8 % (0-9); NEUT % 65 % (31-73); PLATELET COUNT 229 x10^3/uL (140-400); RED BLOOD COUNT 4.39 x10^6/uL (3.50-5.40); RED CELL DISTRIBUTION WIDTH 16.3 % (11.5-14.5); WHITE BLOOD COUNT 6.2 x10^3/uL (4.0-11.0)
[2021-07-24 09:29] LABS: ALBUMIN 3.6 g/dL (3.4-5.0); TOTAL BILIRUBIN 0.3 mg/dL (0.2-1.0); TOTAL PROTEIN 7.3 g/dL (6.4-8.2)
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
[2021-07-24 09:38] LABS: BACTERIA,URINE 0 /HPF (0-FEW); BILIRUBIN,URINE NEG (NEG); CLARITY,URINE HAZY; COLOR,URINE STRAW; GLUCOSE,URINE NEG (NEG); NITRITE,URINE NEG (NEG); RBC,URINE 0 /HPF (0-2); SQUAMOUS EPITHELIAL CELL,UR FEW /LPF; UROBILINOGEN,URINE 0.2 mg/dL (0.2 mg/dL)
--- NOTE | 2021-07-24 09:51 | RAD ---
EXAM: Right shoulder, 2 views. HISTORY: Pain. COMPARISON: None. FINDINGS: 2 views of the right shoulder obtained. There is no fracture, dislocation or subluxation. IMPRESSION: No acute osseous finding. Electronically signed by: Susan Barnes MD (07/24/2021 9:49 AM) [id number]
--- NOTE | 2021-07-24 10:15 | RAD ---
EXAM: Right elbow, 3 views. HISTORY: Pain. COMPARISON: None. FINDINGS: 3 views of the right elbow are obtained. There is no fracture, dislocation or subluxation. There is no elbow effusion. IMPRESSION: No acute osseous finding. Electronically signed by: Susan Barnes MD (07/24/2021 10:12 AM) [id number]
[2021-07-24] MEDS ORDERED: CEPH500T PO (10:38)
[2021-07-24 10:51] VITALS: BP 127/70
== END 2021-07-24 10:52 | disposition home or self-care (01) ==
LOC: ER 08:31
DX: S39.91XA Unspecified injury of abdomen, initial encounter (principal); N39.0 Urinary tract infection, site not specified; M25.521 Pain in right elbow; F41.9 Anxiety disorder, unspecified; F17.200 Nicotine dependence, unspecified, uncomplicated; Z90.49 Acquired absence of other specified parts of digestive tract; Z90.710 Acquired absence of both cervix and uterus; Z90.722 Acquired absence of ovaries, bilateral; Z87.440 Personal history of urinary (tract) infections; Z88.5 Allergy status to narcotic agent; Z88.8 Allergy status to other drugs, medicaments and biological substances; X58.XXXA Exposure to other specified factors, initial encounter; Y93.89 Activity, other specified; Y92.89 Other specified places as the place of occurrence of the external cause; Y99.8 Other external cause status
CPT/HCPCS: 36415; 73030; 73080; 74177; 80053; 81001; 85025; 87086; 87147; 96361; 96374; 96375; 99285; J2405; J3010; J7030; Q9967

== ENCOUNTER 2021-08-31 12:51 | Emergency (ER) | payer OTHER ==
[~2021-08-31] VITALS: Ht 177.8 cm; Wt 63.0 kg
[~2021-08-31 12:51] MED LIST changes: +CEPH500T PO
[2021-08-31 14:14] LABS: BILIRUBIN,URINE NEG (NEG); CLARITY,URINE CLEAR; COLOR,URINE YELLOW; GLUCOSE,URINE NEG (NEG)
[2021-08-31 14:15] LABS: BACTERIA,URINE 0 /HPF (0-FEW); NITRITE,URINE NEG (NEG); RBC,URINE OCC /HPF (0-2); SQUAMOUS EPITHELIAL CELL,UR MOD /LPF; UROBILINOGEN,URINE 0.2 mg/dL (0.2 mg/dL); WBC,URINE 0 /HPF (0-4)
[2021-08-31 14:22] VITALS: BP 104/67
[2021-08-31] MEDS ORDERED: ONDANSETRON ODT 4 MG TAB.RAPDIS PO ONE (14:30)
[2021-08-31] MEDS ORDERED: ONDA4TAB12 PO (14:47)
--- NOTE | 2021-08-31 14:48 | PHYS DOC ---
Past History Past Medical History: Anxiety, Arrhythmia, Cancer, Diverticulitis, Ovarian Cyst, Pancreatitis, UTI, Other Additional Past Medical Histor: urosepsis, gastroparesis, diverticulosis, ideopathic pancreatitis, PSVT, Past Surgical History: Cholecystectomy, Hysterectomy, Other Additional Past Surgical Histo: biliary flush Smoking: Less than 1pk/day Alcohol Use: None Drug Use: None Adult General Chief Complaint Chief Complaint: MULTIPLE COMPLAINTS HPI HPI Patient is a 46 yr old female who presents the ED today with multiple complaints. Patient states she was at work today, she didn't feel right described as body aches, nausea, she states she took her blood pressure which was in the 150s over low 100s. She states she has history of hypotension. She states she left work and went to urgent care. She states and her blood pressure was also taken there and it was still in the 150s over low 100s. She also states she has had vaginal discharge and strong odor from her urine, denies any concerns for STDs and does not want to be tested, denies any urgency, frequency or dysuria, she states they did an influenza test at urgent care which was negat gerhard. She states she did a rapid Covid test at work which was negative this morning. Patient denies any chest pain, shortness of breath. 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 Review of Systems Review of Systems Constitutional: Reports body aches. Denies fever or chills [] Eyes: Denies change in visual acuity, redness, or eye pain [] HENT: Denies nasal congestion or sore throat [] Respiratory: Denies cough or shortness of breath [] Cardiovascular: Reports high blood pressure. No additional information not addressed in HPI [] GI: Reports nausea. Denies abdominal pain, nausea, bloody stools or diarrhea [] : Reports strong odor from her urine, reports vaginal discharge, denies dysuria or hematuria [] Musculoskeletal: Denies back pain or joint pain [] Integument: Denies rash or skin lesions [] Neurologic: Denies headache, focal weakness or sensory changes [] All other systems were reviewed and found to be within normal limits, except as documented in this note. Current Medications Current Medications Current Medications Medications (Trade) Dose Ordered Sig/Derek Start Time Stop Time Status Last Admin Dose Admin Ondansetron HCl (Zofran Odt) 4 mg 1X ONCE 08/31/21 14:30 08/31/21 14:31 DC 08/31/21 14:21 4 MG Allergies Allergies Allergies Coded Allergies Type Severity Reaction Last Updated Verified citalopram Allergy Unknown 08/31/21 Yes morphine Allergy Unknown 08/31/21 Yes nitroglycerin Allergy Unknown 08/31/21 Yes Physical Exam Physical Exam Constitutional: Well developed, well nourished, no acute distress, non-toxic appearance. [] HENT: Normocephalic, atraumatic, bilateral external ears normal, oropharynx moist, no oral exudates, nose normal. [] Eyes: PERRLA, EOMI, conjunctiva normal, no discharge. [] Neck: Normal range of motion, no tenderness, supple, no stridor. [] Cardiovascular:Heart rate regular rhythm, no murmur [] Lungs & Thorax: Bilateral breath sounds clear to auscultation [] Abdomen: Bowel sounds normal, soft, no tenderness, no masses, no pulsatile masses. [] Skin: Warm, dry, no erythema, no rash. [] Back: No tenderness, no CVA tenderness. [] Extremities: No tenderness, no cyanosis, no clubbing, ROM intact, no edema. [] Neurologic: Alert and oriented X 3, normal motor function, normal sensory func tion, no focal deficits noted. [] Psychologic: Affect normal, judgement normal, mood normal. [] Current Patient Data Vital Signs Vital Signs Date Time Temp Pulse Resp B/P (MAP) Pulse Ox O2 Delivery O2 Flow Rate FiO2 08/31/21 14:22 78 16 104/67 (79) 100 08/31/21 13:25 98.4 Lab Results Laboratory Tests Test 08/31/21 13:35 Urine Collection Type Clean catch Urine Color Yellow Urine Clarity Clear Urine pH 6.0 Urine Specific [place] 1.010 Urine Protein Neg (NEG-TRACE) Urine Glucose (UA) Neg mg/dL (NEG) Urine Ketones (Stick) Neg mg/dL (NEG) Urine Blood Trace (NEG) Urine Nitrite Neg (NEG) Urine Bilirubin Neg (NEG) Urine Urobilinogen Dipstick 0.2 mg/dL (0.2 mg/dL) Urine Leukocyte Esterase Neg (NEG) Urine RBC Occ /HPF (0-2) Urine WBC 0 /HPF (0-4) Urine Squamous Epithelial Cells Mod /LPF Urine Bacteria 0 /HPF (0-FEW) EKG EKG [] Radiology/Procedures Radiology/Procedures [] Heart Score C/O Chest Pain: N/A Risk Factors: Risk Factors: DM, Current or recent (<one month) smoker, HTN, HLP, family history of CAD, obesity. Risk Scores: Risk Factors: DM, Current or recent (<one month) smoker, HTN, HLP, family history of CAD, obesity. Course & Med Decision Making Course & Med Decision Making Pertinent Labs and Imaging studies reviewed. (See chart for details) This is a 46-year-old female patient presenting to the ED today with multiple complaints including elevated blood pressure, body aches, nausea, strong urine odor, vaginal discharge. Patient refused pelvic exam and STD check. She already had influenza test done at urgent care today which was negative, she had a rapid Covid test done at work which is negative. Her blood pressure in the ED is 131/82 with a heart rate of 70. After being in the ED for a while her blood pressure came down as low as 107/70 with a heart rate in the 60s. UA negative for infection. I spoke to patient at length about including lab work, she refused, chest x-ray she refused. She was discharged to home. Fo llow-up with PCP Jitendra Disclaimer Jitendra Disclaimer This electronic medical record was generated, in whole or in part, using a voice recognition dictation system. Departure Departure: Impression: Primary Impression: Nausea Disposition: HOME / SELF CARE / HOMELESS Condition: STABLE Referrals: ALISON MACHADO DO (PCP) follow up in one week Patient Instructions: Nausea, Adult Additional Instructions: You were evaluated in the emergency room, your blood pressure was normal, your urine was negative for any infection or any signs of dehydration. Please follow-up with your primary care doctor in 1 week. Come back to the ED at any point symptoms worsen. Scripts Ondansetron (ONDANSETRON ODT) 4 Mg Tab.rapdis 1 TAB PO PRN Q6-8HRS, #16 TAB Prov: MARY LEMON Isra PROGRAM MANAGEMENT SPECIALIST 08/31/21 MARY LEMON PROGRAM MANAGEMENT SPECIALIST Aug 31, 2021 14:48
== END 2021-08-31 14:56 | disposition home or self-care (01) ==
LOC: ER 12:51
DX: R11.0 Nausea (principal); N89.8 Other specified noninflammatory disorders of vagina; M79.10 Myalgia, unspecified site; F41.9 Anxiety disorder, unspecified; F17.200 Nicotine dependence, unspecified, uncomplicated; Z87.440 Personal history of urinary (tract) infections; Z88.5 Allergy status to narcotic agent; Z88.8 Allergy status to other drugs, medicaments and biological substances
CPT/HCPCS: 81001; 99283; Q0162

== ENCOUNTER 2021-10-29 11:29 | Emergency (ER) | payer OTHER ==
[~2021-10-29] VITALS: Ht 177.8 cm; Wt 65.9 kg
--- NOTE | 2021-10-29 11:46 | PHYS DOC ---
Past History Past Medical History: Anxiety, Arrhythmia, Cancer, Diverticulitis, Ovarian Cyst, Pancreatitis, UTI, Other Additional Past Medical Histor: urosepsis, gastroparesis, diverticulosis, ideopathic pancreatitis, PSVT, Past Surgical History: Cholecystectomy, Hysterectomy, Other Additional Past Surgical Histo: biliary flush Smoking: Less than 1pk/day Alcohol Use: None Drug Use: None Adult General Chief Complaint Chief Complaint: ABDOMINAL PAIN HPI HPI Patient is a 46-year-old female presenting via POV for abdominal pain. Onset was several hours ago while at work without any obvious trauma, fall, ingestion, exposure or other noteworthy event. Nothing known makes better. Direct palpation and certain body movements make worse. Pain is dull but when exacerbated sharp. It is most focal to left lower quadrant but radiates to midline of abdomen in addition to left flank. Timing of symptoms has been constant since onset. Associated symptoms include nausea. She has extensive GI history, has had a cholecystectomy, hysterectomy, kidney stones, Crohn's and history of diverticulosis. Review of Systems Review of Systems Fourteen body systems of review of systems have been reviewed. See HPI for pertinent positives and negative responses, other matthews all other systems are negative, non-pertinent or non-contributory Allergies Allergies Allergies Coded Allergies Type Severity Reaction Last Updated Verified citalopram Allergy Unknown 08/31/21 Yes morphine Allergy Unknown 08/31/21 Yes nitroglycerin Allergy Unknown 08/31/21 Yes Physical Exam Physical Exam Constitutional: Well developed, well nourished, no acute distress, non-toxic appearance. HENT: Normocephalic, atraumatic, bilateral external ears normal, oropharynx moist, no oral exudates, nose normal. Eyes: PERRLA, EOMI, conjunctiva normal, no discharge. Neck: Normal range of motion, no tenderness, supple, no stridor. Cardiovascular: Heart rate regular, sinus rhythm, no murmurs rubs or gallops Lungs & Thorax: Bilateral breath sounds clear to auscultation Abdomen: Bowel sounds normal, soft, tenderness present to left lower quadrant with guarding present, no rebound, no masses, no pulsatile masses. Nonsurgical abdomen, no peritoneal signs Skin: Warm, dry, no erythema, no rash. Back: No tenderness, no CVA tenderness. Extremities: No tenderness, no cyanosis, no clubbing, ROM intact, no edema. Neurologic: Alert and oriented X 3, grossly normal motor & sensory function, no focal deficits noted. Psychologic: Anxious affect and mood Current Patient Data Vital Signs Vital Signs Date Time Temp Pulse Resp B/P (MAP) Pulse Ox O2 Delivery O2 Flow Rate FiO2 10/29/21 12:12 98.8 77 18 118/78 (91) 99 Room Air Vital Signs Date Time Temp Pulse Resp B/P (MAP) Pulse Ox O2 Delivery O2 Flow Rate FiO2 10/29/21 12:12 98.8 77 18 118/78 (91) 99 Room Air Lab Results Laboratory Tests Test 10/29/21 11:46 10/29/21 12:12 Urine Collection Type Clean catch Urine Color Yellow Urine Clarity Clear Urine pH 7.0 Urine Specific [place] 1.010 Urine Protein Neg Urine Glucose (UA) Neg mg/dL Urine Ketones (Stick) Neg mg/dL Urine Blood Trace Urine Nitrite Neg Urine Bilirubin Neg Urine Urobilinogen Dipstick 0.2 mg/dL Urine Leukocyte Esterase Neg Urine RBC Occ /HPF Urine WBC 0 /HPF Urine Squamous Epithelial Cells Mod /LPF Urine Bacteria 0 /HPF White Blood Count 6.2 x10^3/uL Red Blood Count 4.24 x10^6/uL Hemoglobin 11.8 g/dL Hematocrit 36.4 % Mean Corpuscular Volume 86 fL Mean Corpuscular Hemoglobin 28 pg Mean Corpuscular Hemoglobin Concent 33 g/dL Red Cell Distribution Width 15.6 % Platelet Count 207 x10^3/uL Neutrophils (%) (Auto) 60 % Lymphocytes (%) (Auto) 31 % Monocytes (%) (Auto) 6 % Eosinophils (%) (Auto) 2 % Basophils (%) (Auto) 1 % Neutrophils # (Auto) 3.7 x10^3uL Lymphocytes # (Auto) 2.0 x10^3/uL Monocytes # (Auto) 0.4 x10^3/uL Eosinophils # (Auto) 0.1 x10^3/uL Basophils # (Auto) 0.0 x10^3/uL Sodium Level 141 mmol/L Potassium Level 3.7 mmol/L Chloride Level 104 mmol/L Carbon Dioxide Level 26 mmol/L Anion Gap 11 Blood Urea Nitrogen 6 mg/dL Creatinine 0.5 mg/dL Estimated GFR (Cockcroft-Gault) 134.0 BUN/Creatinine Ratio 12 Glucose Level 78 mg/dL Lactic Acid Level 0.4 mmol/L Calcium Level 8.6 mg/dL Total Bilirubin 0.3 mg/dL Aspartate Amino Transf (AST/SGOT) 14 U/L Alanine Aminotransferase (ALT/SGPT) 20 U/L Alkaline Phosphatase 65 U/L Troponin I High Sensitivity < 4 ng/L Total Protein 6.5 g/dL Albumin 3.5 g/dL Albumin/Globulin Ratio 1.2 Lipase 81 U/L Current Medications Medications (Trade) Dose Ordered Sig/Derek Route PRN Reason Start Time Stop Time Status Last Admin Dose Admin Sodium Chloride 1,000 ml @ 1,000 mls/hr 1X ONCE IV 10/29/21 12:00 10/29/21 12:59 10/29/21 12:17 Metoclopramide HCl (Reglan Vial) 10 mg 1X ONCE IVP 10/29/21 12:00 10/29/21 12:01 DC 10/29/21 12:17 Fentanyl Citrate (Fentanyl 2ml Vial) 50 mcg 1X ONCE IVP 10/29/21 12:00 10/29/21 12:01 DC Iohexol (Omnipaque 300 Mg/ml) 75 ml 1X ONCE IV 10/29/21 12:00 10/29/21 12:01 DC 10/29/21 12:22 Iohexol (Omnipaque 300 Mg/ml) 75 ml STK-MED ONCE .ROUTE 10/29/21 12:02 10/29/21 12:02 DC EKG EKG EKG ordered and interpreted by myself at 1205 hrs. is sinus rhythm at 63 bpm, unremarkable intervals, no axis deviation, no acute ischemic findings, no STEMI Radiology/Procedures Radiology/Procedures EXAM: Abdomen and pelvis CT with intravenous contrast. HISTORY: Left lower quadrant pain. TECHNIQUE: Computed tomographic images of the abdomen and pelvis were obtained following the administration of intravenous contrast. Multiplanar reformatting was performed. *One or more of the following individualized dose reduction techniques were u tilized for this examination: 1. Automated exposure control. 2. Adjustment of the mA and/or kV according to patient size. 3. Use of iterative reconstruction technique. COMPARISON: 07/24/2021. FINDINGS: Evaluation of the lower thorax is unremarkable. There are small simple renal cysts, largest which measures 2.1 cm. There is mild biliary ductal dilatation, likely due to reservoir effect status post cholecystectomy. There is also a prominent pancreatic duct. There is a suspected dilated ducts sidebranch within the mid pancreas. There is a small splenule along the inferior aspect of the spleen. The spleen is normal in size. The adrenal glands are unremarkable. No renal lesion or hydronephrosis is seen. There is no appendicitis. There is no bowel obstruction. There is colonic diverticulosis. There is no convincing diverticulitis. There is no convincing acute colitis. There is a 3.1 cm left ovarian cyst. The uterus is absent. The bladder is unremarkable. The aorta is normal in caliber. There is no acute or suspicious osseous finding. There is an incidental L4 limbus vertebrae. IMPRESSION: 1. Colonic diverticulosis. There is no convincing acute diverticulitis or colitis. 2. 3.1 cm left ovarian cyst. 3. Biliary ductal dilatation and prominent pancreatic duct, likely due to reservoir effect status post cholecystectomy. There is a tiny focus of hypodensity within the pancreatic body which may be due to a dilated duct sidebranch. No convincing suspicious pancreatic lesion is seen. 4. Simple hepatic cysts. Electronically signed by: Susan Barnes MD (10/29/2021 12:48 PM) [facility] Heart Score C/O Chest Pain: No Risk Factors: Risk Factors: DM, Current or recent (<one month) smoker, HTN, HLP, family history of CAD, obesity. Risk Scores: Risk Factors: DM, Current or recent (<one month) smoker, HTN, HLP, family history of CAD, obesity. Course & Med Decision Making Course & Med Decision Making ABCs unremarkable HPI physical exam and comprehensive ER work-up nonconcerning for any emergent or surgical issues Patient symptoms resolved with provided ER intervention. Disclose little indication for further diagnostic work-up and/or need for hospitalization, iron doshi agreed She is aware that this might be an acute presentation of more concerning pathology. 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 Departure Departure: Impression: Primary Impression: Abdominal pain Disposition: HOME / SELF CARE / HOMELESS Condition: STABLE Referrals: ALISON MACHADO DO (PCP) Patient Instructions: Abdominal Pain (Nonspecific) Additional Instructions: You have been evaluated in the Emergency Department today for abdominal pain. Your evaluation was not suggestive of any emergent condition requiring medical intervention at this time. However, some abdominal problems make take more time to appear. Therefore, it is important for you to watch for any new symptoms or worsening of your current condition. Please follow up with your primary care physician as needed. If you do not have a primary doctor, you can call your insurance company to find one. If you do not have insurance, you can go to the finance/registration department for more assistance. Return to the Emergency Department if you experience worsening pain, persistent fevers greater than 100.4, recurrent vomiting, blood in vomit, blood in stool, dark tarry stool, chest pain, difficulty breathing, or any other concerning symptoms. Scripts Metoclopramide Hcl (REGLAN) 5 Mg Tablet 1 TAB PO TID for nausea, #30 TAB 0 Refills 1 hour prior to procedure Prov: RODRIGO CARCAMO DO 10/29/21 RODRIGO CARCAMO DO Oct 29, 2021 11:46
[2021-10-29] MEDS ORDERED: IV NORMAL SALINE 1,000ML 1,000 ML IV ONE (12:00)
[2021-10-29] MEDS ORDERED: IOHEXOL 300 MG/ML 75 ML VIAL. IV ONE (12:00)
[2021-10-29] MEDS ORDERED: METOCLOPRAMIDE HCL 10 MG/2 ML VIAL. IVP ONE (12:00)
[2021-10-29] MEDS ORDERED: IOHEXOL 300 MG/ML 75 ML VIAL. ONE (12:02)
--- NOTE | 2021-10-29 12:09 | EKG ---
[address] [address] Test Date: 2021-10-29 Test Time: 12:03:34 Pat Name: ALEKSANDR GIMENEZ Department: Room: Gender: F Soft Boarder: RUTH : 1975 Requested By: RODRIGO CARCAMO Order Number: [id number] Reading MD: Jimi Palma Measurements Intervals [place] Rate: 63 P: 45 MS: 134 QRS: 27 QRSD: 86 T: 31 QT: 410 QTc: 423 Interpretive Statements SINUS RHYTHM Electronically Signed On 10-29-2021 13:45:34 [employer]FFEN HOUSE SUPERVISOR by Jimi Palma
[2021-10-29 12:29] LABS: BASO % 1 % (0-3); EOS # 0.1 x10^3/uL (0.0-0.7); EOS % 2 % (0-3); HEMATOCRIT 36.4 % (36.0-47.0); HEMOGLOBIN 11.8 g/dL (12.0-15.5); LYMPH % 31 % (24-48); MEAN CORPUSCULAR HEMOGLOBIN 28 pg (25-35); MEAN CORPUSCULAR HGB CONC 33 g/dL (31-37); MEAN CORPUSCULAR VOLUME 86 fL (79-100); MONO # 0.4 x10^3/uL (0.0-1.1); MONO % 6 % (0-9); NEUT # 3.7 x10^3uL (1.8-7.7); NEUT % 60 % (31-73); PLATELET COUNT 207 x10^3/uL (140-400); RED BLOOD COUNT 4.24 x10^6/uL (3.50-5.40); RED CELL DISTRIBUTION WIDTH 15.6 % (11.5-14.5); WHITE BLOOD COUNT 6.2 x10^3/uL (4.0-11.0)
[2021-10-29 12:39] LABS: CALCIUM 8.6 mg/dL (8.5-10.1); CREATININE 0.5 mg/dL (0.6-1.0); POTASSIUM 3.7 mmol/L (3.5-5.1)
[2021-10-29 12:45] LABS: ALBUMIN 3.5 g/dL (3.4-5.0); ALBUMIN/GLOBULIN RATIO 1.2 (1.0-1.7); TOTAL BILIRUBIN 0.3 mg/dL (0.2-1.0); TOTAL PROTEIN 6.5 g/dL (6.4-8.2)
--- NOTE | 2021-10-29 12:50 | RAD ---
EXAM: Abdomen and pelvis CT with intravenous contrast. HISTORY: Left lower quadrant pain. TECHNIQUE: Computed tomographic images of the abdomen and pelvis were obtained following the administ ration of intravenous contrast. Multiplanar reformatting was performed. *One or more of the following individualized dose reduction techniques were utilized for this examina tion: 1. Automated exposure control. 2. Adjustment of the mA and/or kV according to patient size. 3. Use of iterative reconstruction technique. COMPARISON: 07/24/2021. FINDINGS: Evaluation of the lower thorax is unremarkable. There are small simple renal cysts, largest which measures 2.1 cm. There is mild biliary ductal dilatation, likely due to reservoir effect statu s post cholecystectomy. There is also a prominent pancreatic duct. There is a suspected dilated ducts sidebranch within the mid pancreas. There is a small splenule along the inferior aspect of the splee n. The spleen is normal in size. The adrenal glands are unremarkable. No renal lesion or hydronephros is is seen. There is no appendicitis. There is no bowel obstruction. There is colonic diverticulosis. There is no convincing diverticulitis. There is no convincing acute colitis. There is a 3.1 cm left ovarian cyst . The uterus is absent. The bladder is unremarkable. The aorta is normal in caliber. There is no acut e or suspicious osseous finding. There is an incidental L4 limbus vertebrae. IMPRESSION: 1. Colonic diverticulosis. There is no convincing acute diverticulitis or colitis. 2. 3.1 cm left ovarian cyst. 3. Biliary ductal dilatation and prominent pancreatic duct, likely due to reservoir effect status pos t cholecystectomy. There is a tiny focus of hypodensity within the pancreatic body which may be due t o a dilated duct sidebranch. No convincing suspicious pancreatic lesion is seen. 4. Simple hepatic cysts. Electronically signed by: Susan Barnes MD (10/29/2021 12:48 PM) [facility]
[2021-10-29 13:03] VITALS: BP 98/50
[2021-10-29] MEDS ORDERED: METO5TAB55 PO (13:12)
== END 2021-10-29 13:20 | disposition home or self-care (01) ==
LOC: ER 11:29
DX: R10.32 Left lower quadrant pain (principal); R11.0 Nausea; F41.9 Anxiety disorder, unspecified; F17.200 Nicotine dependence, unspecified, uncomplicated; Z87.440 Personal history of urinary (tract) infections; Z90.49 Acquired absence of other specified parts of digestive tract; Z90.710 Acquired absence of both cervix and uterus; Z88.5 Allergy status to narcotic agent; Z88.8 Allergy status to other drugs, medicaments and biological substances
CPT/HCPCS: 36415; 74177; 80053; 83605; 83690; 84484; 85025; 93005; 96361; 96374; 96375; 99285; J2765; J3010; J7030; Q9967

== ENCOUNTER 2021-12-02 11:18 | Emergency (ER) | payer OTHER ==
[~2021-12-02] VITALS: Ht 177.8 cm; Wt 66.9 kg
[~2021-12-02 11:18] MED LIST changes: +METO5TAB55 PO
--- NOTE | 2021-12-02 11:31 | PHYS DOC ---
Past History Past Medical History: Anxiety, Arrhythmia, Cancer, Diverticulitis, Ovarian Cyst, Pancreatitis, UTI, Other Additional Past Medical Histor: CROHNS, DIVERTICULOSIS, PSVT Past Surgical History: Cholecystectomy, Hysterectomy Additional Past Surgical Histo: biliary flush Smoking: Less than 1pk/day Alcohol Use: None Drug Use: None Adult General Chief Complaint Chief Complaint: COUGH HPI HPI Patient is a 46-year-old female presented to the emergency department for evaluation of cough arthralgias myalgias and feeling short of breath. Patient reportedly started having the cough earlier this morning and went to work and they told her that she had a normal oxygen saturation but decreased breath sounds on the right side and demanded that she come to the emergency department to be evaluated. She has been vaccinated for Covid and said that she had a negative rapid Covid test this morning. She denies any production to the cough and she said that she feels slightly short of breath with a cough but no measured fevers chills nausea vomiting leg swelling prior DVT or PE. She is in no acute distress with normal vital signs. Review of Systems Review of Systems Constitutional: Denies fever or chills [] Eyes: Denies change in visual acuity, redness, or eye pain [] HENT: Denies nasal congestion or sore throat [] Respiratory: Positive cough and shortness of breath Cardiovascular: No additional information not addressed in HPI [] GI: Denies abdominal pain, nausea, vomiting, bloody stools or diarrhea [] : Denies dysuria or hematuria [] Musculoskeletal: Positive arthralgias and myalgias Integument: Denies rash or skin lesions [] Neurologic: Denies headache, focal weakness or sensory changes [] All other systems were reviewed and found to be within normal limits, except as documented in this note. Allergies Allergies Allergies Coded Allergies Type Severity Reaction Last Updated Verified citalopram Allergy Unknown 10/29/21 Yes morphine Allergy Unknown 10/29/21 Yes nitroglycerin Allergy Unknown 10/29/21 Yes Physical Exam Physical Exam Constitutional: Well developed, well nourished, no acute distress, non-toxic appearance. [] HENT: Normocephalic, atraumatic, bilateral external ears normal, oropharynx moist, no oral exudates, nose normal. [] Neck: Normal range of motion, no tenderness, supple, no stridor. [] Cardiovascular:Heart rate regular rhythm, no murmur [] Lungs & Thorax: Slightly diminished breath sounds on the right base but no wheezing auscultated. Skin: Warm, dry, no erythema, no rash. [] Extremities: No tenderness, no cyanosis, no clubbing, ROM intact, no edema. [] Neurologic: Alert and oriented X 3, normal motor function, normal sensory fun ction, no focal deficits noted. [] EKG EKG [] Radiology/Procedures Radiology/Procedures [] Heart Score C/O Chest Pain: No Risk Factors: Risk Factors: DM, Current or recent (<one month) smoker, HTN, HLP, family history of CAD, obesity. Risk Scores: Risk Factors: DM, Current or recent (<one month) smoker, HTN, HLP, family history of CAD, obesity. Course & Med Decision Making Course & Med Decision Making I will check an x-ray. I did offer a breathing treatment however patient says that she cannot tolerate breathing treatments due to her sensitivity and frequent episodes of SVT. PERC score is equal to 0. Patient's chest x-ray appears normal and she continues to have normal vital signs and feels well except for intermittent cough. I will prescribe her prednisone Kevin Banuelos told her to follow-up primary care provider within 2 to 3 days and come back to emergency department sooner with worsening pain shortness of breath with general concerns. Patient aware and agreeable with plan verbalized understanding of above instructions. Dragon Disclaimer Dragon Disclaimer This electronic medical record was generated, in whole or in part, using a voice recognition dictation system. Departure Departure: Impression: Primary Impression: URI (upper respiratory infection) Additional Impression: Acute bronchospasm Disposition: HOME / SELF CARE / HOMELESS Condition: STABLE Referrals: ALISON MACHADO DO (PCP) Patient Instructions: Bronchospasm, Adult Scripts Prednisone (PREDNISONE) 50 Mg Tablet 1 TAB PO DAILY, #4 TAB Prov: FARRUKH POST DO 12/02/21 Benzonatate (BENZONATATE) 100 Mg Capsule 1 CAP PO TID PRN for COUGH, #15 CAP Prov: FARRUKH POST DO 12/02/21 Problem Qualifiers FARRUKH POST DO Dec 02, 2021 11:31
[2021-12-02 11:37] VITALS: BP 101/74
[2021-12-02 12:15] LABS: INFLUENZA A PATIENT NEGATIVE (NEGATIVE); INFLUENZA B PATIENT NEGATIVE (NEGATIVE)
--- NOTE | 2021-12-02 12:48 | RAD ---
Single view chest dated 12/02/2021 12:45 PM: COMPARISON: 06/19/2021 Clinical Indication: Cough for 2 days.. Findings: Single upright portable exam of the chest was performed. Heart size and mediastinal contours are with in normal limits. Lungs are clear. No consolidation or pleural effusion. No pneumothorax. IMPRESSION: No acute radiographic abnormality. Electronically signed by: Shaquille Alford MD (12/02/2021 12:46 PM) [id number]
[2021-12-02] MEDS ORDERED: BENZ-8 PO (12:56)
[2021-12-02] MEDS ORDERED: PRED50TA PO (12:56)
== END 2021-12-02 13:04 | disposition home or self-care (01) ==
LOC: ER 11:18
DX: J06.9 Acute upper respiratory infection, unspecified (principal); J98.01 Acute bronchospasm; F17.200 Nicotine dependence, unspecified, uncomplicated; Z87.440 Personal history of urinary (tract) infections; Z88.5 Allergy status to narcotic agent; Z88.8 Allergy status to other drugs, medicaments and biological substances
CPT/HCPCS: 71045; 87428; 87804; 99284

== ENCOUNTER 2022-02-02 09:17 | Emergency (ER) | payer OTHER ==
[~2022-02-02] VITALS: Ht 177.8 cm; Wt 65.3 kg
[~2022-02-02 09:17] MED LIST changes: +BENZ-8 PO; +PRED50TA PO
--- NOTE | 2022-02-02 10:13 | PHYS DOC ---
Past History Past Medical History: Anxiety, Arrhythmia, Cancer, Diverticulitis, Ovarian Cyst, Pancreatitis, UTI, Other Additional Past Medical Histor: CROHNS, DIVERTICULOSIS, PSVT Past Surgical History: Cholecystectomy, Hysterectomy, Oophorectomy Additional Past Surgical Histo: biliary flush Smoking: Less than 1pk/day Alcohol Use: None Drug Use: None General Adult EDM: Chief Complaint: CONSTIPATION HPI: HPI: Patient is a 46-year-old female coming in for fecal impaction. Patient says she has not had a bowel movement in several days but did have small amount of watery stool few days ago. Patient's coworker tried to do a digital disimpaction but felt a large ball of hard stool. Patient has tried a suppository but did not help. Patient had an nephrectomy 2 weeks ago that was uncomplicated. Patient states that she has been taking Zofran for the past week for a GI illness. Denies taking any pain medicines. Review of Systems: Review of Systems: All other systems within normal limits except for as noted in the HPI Allergies: Allergies: Allergies Coded Allergies Type Severity Reaction Last Updated Verified citalopram Allergy Unknown 02/02/22 Yes morphine Allergy Unknown 10/29/21 Yes nitroglycerin Allergy Unknown 10/29/21 Yes Physical Exam: PE: All other systems within normal limits except for as noted in the HPI Current Patient Data: Vital Signs: Vital Signs Date Time Temp Pulse Resp B/P (MAP) Pulse Ox O2 Delivery O2 Flow Rate FiO2 02/02/22 09:42 98.2 72 20 107/73 (84) 96 Room Air EKG: EKG: [] Radiology/Procedures: Radiology/Procedures: [address] [address] IMAGING REPORT Signed PATIENT: ALEKSANDR GIMENEZ ACCOUNT: [id number] : 1975 LOCATION: ER AGE: 46 SEX: F EXAM STATUS: REG ER ORD. PHYSICIAN: FELICIANO TRAN MD REASON: constipation PROCEDURE: CT ABDOMEN PELVIS WO CONTRAST CT ABDOMEN+PELVIS WO History: Reason: constipation / Spl. Instructions: / History: Technique: Noncontrast examination of the abdomen and pelvis. Coronal and sagittal reconstructions were performed. Exposure: One or more of the following individualized dose reduction techniques were utilized for this examination: 1. Automated exposure control 2. Adjustment of the mA and/or kV according to patient size 3. Use of iterative reconstruction technique. Comparison: October 29, 2021 and July 24, 2021 Findings: Lower chest: No consolidation or pleural effusion. Abdomen and pelvis: Small hepatic hypodensities largest within the left hepatic lobe measures 2.0 x 1.8 cm, unchanged. The spleen, adrenal glands, and pancreas are unremarkable noncontrast appearance. Prior cholecystectomy. No biliary ductal dilatation. No renal calculus. No hydronephrosis. Mild urinary bladder wall thickening. Large rectal stool burden with moderate distention of the rectum. Colonic diverticulosis. Moderate proximal and mid colonic stool burden. Normal appendix. No evidence of bowel obstruction. No pathologic lymphadenopathy. No ascites. Prior hysterectomy. Bones: L4 limbus vertebra, unchanged. T11 posterior sclerotic lesion, likely bone island, unchanged. Impression: 1. Moderate distention of the rectum with large stool burden. Additional moderate proximal and mid colonic stool burden. 2. Mild urinary bladder wall thickening, may indicate cystitis. Electronically signed by: Wilfred Joyce DO (02/02/2022 11:26 AM) [id number] DICTATED AND SIGNED BY: WILFRED JOYCE DO DATE: 02/02/22 1119 CC: FELICIANO TRAN MD; ALISON MACHADO DO ~ [] Heart Score: C/O Chest Pain: No Risk Factors: Risk Factors: DM, Current or recent (<one month) smoker, HTN, HLP, family history of CAD, obesity. Risk Scores: Score 0 - 3: 2.5% MACE over next 6 weeks - Discharge Home Score 4 - 6: 20.3% MACE over next 6 weeks - Admit for Clinical Observation Score 7 - 10: 72.7% MACE over next 6 weeks - Early Invasive Strategies Course & Med Decision Making: Course & Med Decision Making Pertinent Labs and Imaging studies reviewed. (See chart for details) No electrolyte abnormalities contributing to constipation. Patient has large rectal stool burden. Had large amount of stool passed after suppositories and enema [] Dragon Disclaimer: Jitendra Disclaimer: This electronic medical record was generated, in whole or in part, using a voice recognition dictation system. Departure Departure: Impression: Primary Impression: Fecal impaction in rectum Disposition: HOME / SELF CARE / HOMELESS Condition: IMPROVED Referrals: ALISON MACHADO DO (PCP) Patient Instructions: Constipation, Adult FELICIANO TRAN MD February 02, 2022 10:13
[2022-02-02 11:17] LABS: BASO % 1 % (0-3); EOS # 0.4 x10^3/uL (0.0-0.7); EOS % 6 % (0-3); HEMATOCRIT 40.2 % (36.0-47.0); HEMOGLOBIN 13.3 g/dL (12.0-15.5); LYMPH # 2.5 x10^3/uL (1.0-4.8); LYMPH % 42 % (24-48); MEAN CORPUSCULAR HEMOGLOBIN 29 pg (25-35); MEAN CORPUSCULAR HGB CONC 33 g/dL (31-37); MEAN CORPUSCULAR VOLUME 88 fL (79-100); MONO # 0.4 x10^3/uL (0.0-1.1); MONO % 7 % (0-9); NEUT # 2.6 x10^3uL (1.8-7.7); NEUT % 44 % (31-73); PLATELET COUNT 221 x10^3/uL (140-400); RED BLOOD COUNT 4.57 x10^6/uL (3.50-5.40); RED CELL DISTRIBUTION WIDTH 14.9 % (11.5-14.5)
[2022-02-02 11:19] LABS: CALCIUM 8.8 mg/dL (8.5-10.1); CREATININE 0.7 mg/dL (0.6-1.0); GFR 90.9; POTASSIUM 3.8 mmol/L (3.5-5.1)
[2022-02-02 11:27] LABS: ALBUMIN 3.8 g/dL (3.4-5.0); ALBUMIN/GLOBULIN RATIO 1.1 (1.0-1.7); MAGNESIUM 2.1 mg/dL (1.8-2.4); TOTAL BILIRUBIN 0.2 mg/dL (0.2-1.0); TOTAL PROTEIN 7.3 g/dL (6.4-8.2)
--- NOTE | 2022-02-02 11:29 | RAD ---
CT ABDOMEN+PELVIS WO History: Reason: constipation / Spl. Instructions: / History: Technique: Noncontrast examination of the abdomen and pelvis. Coronal and sagittal reconstructions we re performed. Exposure: One or more of the following individualized dose reduction techniques were utilized for thi s examination: 1. Automated exposure control 2. Adjustment of the mA and/or kV according to patient size 3. Use of iterative reconstruction technique. Comparison: October 29, 2021 and July 24, 2021 Findings: Lower chest: No consolidation or pleural effusion. Abdomen and pelvis: Small hepatic hypodensities largest within the left hepatic lobe measures 2.0 x 1 .8 cm, unchanged. The spleen, adrenal glands, and pancreas are unremarkable noncontrast appearance. P rior cholecystectomy. No biliary ductal dilatation. No renal calculus. No hydronephrosis. Mild urinar y bladder wall thickening. Large rectal stool burden with moderate distention of the rectum. Colonic diverticulosis. Moderate pr oximal and mid colonic stool burden. Normal appendix. No evidence of bowel obstruction. No pathologic lymphadenopathy. No ascites. Prior hysterectomy. Bones: L4 limbus vertebra, unchanged. T11 posterior sclerotic lesion, likely bone island, unchanged. Impression: 1. Moderate distention of the rectum with large stool burden. Additional moderate proximal and mid c olonic stool burden. 2. Mild urinary bladder wall thickening, may indicate cystitis. Electronically signed by: Wilfred Joyce DO (02/02/2022 11:26 AM) [id number]
[2022-02-02] MEDS ORDERED: BISACODYL 10 MG SUPP.RECT PR ONE ×2 (11:45)
[2022-02-02] MEDS ORDERED: MINERAL OIL 133 ML ENEMA. PR ONE (11:45)
[2022-02-02 13:41] VITALS: BP 96/64
== END 2022-02-02 14:38 | disposition home or self-care (01) ==
LOC: ER 09:17
DX: K56.41 Fecal impaction (principal); F41.9 Anxiety disorder, unspecified; F17.200 Nicotine dependence, unspecified, uncomplicated; Z87.440 Personal history of urinary (tract) infections; Z88.5 Allergy status to narcotic agent; Z88.8 Allergy status to other drugs, medicaments and biological substances
CPT/HCPCS: 36415; 74176; 80053; 83735; 85025; 96374; 99284; J2060